=== PATIENT | female | born 1970 | race American Indian/Alaskan Native ===

== ENCOUNTER 2017-02-28 03:39 | Emergency (ER) | payer OTHER ==
[2017-02-28] MEDS ORDERED: NACL 0.9% 1000 ML 1,000 ML IV ONE (03:50)
[2017-02-28 04:20] LABS: Basophils % (Auto) 0.7 % (0.0-1.8); Eosinophils % (Auto) 1.7 % (0.0-4.3); Hematocrit 42.9 % (30.3-42.9); Hemoglobin 14.5 gm/dl (10.1-14.3); Mean Corpuscular HGB Conc 34 % (30-34); Mean Corpuscular Hemoglobin 31 pg (28-32); Mean Corpuscular Volume 92 fl (79-97); Platelet Count 226 K/mm3 (140-440); Red Blood Count 4.67 M/mm3 (3.65-5.03); Red Cell Distribution Width 14.3 % (13.2-15.2)
[2017-02-28 04:31] LABS: INR 0.97 (0.87-1.13)
[2017-02-28 04:41] LABS: Alanine Aminotransferase 18 units/L (7-56); Albumin 4.4 g/dL (3.9-5); Albumin/Globulin Ratio 1.4 %; Alkaline Phosphatase 64 units/L (35-129); Anion Gap 21 mmol/L; BUN/Creatinine Ratio 17.14; Blood Urea Nitrogen 12 mg/dL (7-17); Calcium 8.8 mg/dL (8.4-10.2); Carbon Dioxide 22 mmol/L (22-30); Chloride 98.9 mmol/L (98-107); Glucose 97 mg/dL (65-100); Lipase 50 units/L (13-60); Potassium 3.9 mmol/L (3.6-5.0); Sodium 138 mmol/L (137-145); Total Protein 7.6 g/dL (6.3-8.2)
[2017-02-28] MEDS ORDERED: FUL-GLO OP ONE (12:12)
[2017-02-28] MEDS ORDERED: TETRACAINE 0.5% ONE (12:12)
[2017-02-28] MEDS ORDERED: BSS ONE (12:12)
[2017-02-28] MEDS ORDERED: APRESOLINE IV ONE (12:48)
[2017-02-28] MEDS ORDERED: ZOFRAN IV ONE (12:48)
[2017-02-28] MEDS ORDERED: PEPCID IV ONE (12:48)
[2017-02-28] MEDS ORDERED: BENTYL IM ONE (12:49)
--- NOTE | 2017-02-28 12:50 | Emergency Department Report ---
ED General Adult HPI - General Chief complaint: GI Bleed Stated complaint: BLOOD IN STOOL/R EYE REDNESS/FEVER Time Seen by Provider: 02/28/17 12:28 Source: patient, RN notes reviewed, old records reviewed Mode of arrival: Ambulatory Limitations: No Limitations - History of Present Illness Initial comments: This is a 46-year-old female. She is previously unknown to me. 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 The patient presents to the ER with 2 complaints. Her first complaint is red eye on the right-hand side, with resolved discharge and "gritty" feeling. This has been going on for the past few days. She reports that a daughter is sick with pinkeye. She reports that her boss will not let her go back to work. There is no loss of vision. There is no change in visual acuity. There is mild eye discomfort. There is no cough, documented fever or sore throat, although the patient reports that she "feels warm." She does complain of generalized body aches. The patient's last complaint is diffuse abdominal cramps, brown stool mixed with red blood. This is been going on for a few days as well. No recent travel. No recent oral antibiotic use. She reports that she used her daughter' s eyedrop antibiotic. She reports that this made her eye pain worse. -: Gradual Location: eyes Severity scale (0 -10): 7 Quality: aching Consistency: intermittent Improves with: rest Worsens with: movement Associated Symptoms: malaise, nausea/vomiting. denies: confusion, chest pain, cough, diaphoresis, loss of appetite - Related Data Home Medications Medication Instructions Recorded Confirmed Last Taken Furosemide [Lasix] 20 mg PO QDAY 01/07/16 02/28/17 01/07/16 Previous Rx's Medication Instructions Recorded Last Taken Type ALBUTEROL Inhaler [ProAir HFA 2 puff IH QID PRN #1 inha 04/01/16 Unknown Rx Inhaler] Albuterol Sulfate [Albuterol 0.63% 0.63 mg IH TID PRN #10 vial.neb 04/01/16 Unknown Rx NEBS] Aspirin EC [Aspirin Enteric Coated 81 mg PO QDAY #30 tablet 04/01/16 Unknown Rx TAB] Furosemide [Lasix TAB] 40 mg PO QDAY #30 tablet 04/01/16 Unknown Rx Lisinopril [Zestril TAB] 40 mg PO QDAY #30 tablet 04/01/16 Unknown Rx Metoprolol [Lopressor TAB] 25 mg PO BID #60 tablet 04/01/16 Unknown Rx Nitroglycerin [Nitrostat] 0.4 mg SL Q5M PRN #30 tablet 04/01/16 Unknown Rx Pantoprazole [Protonix TAB] 40 mg PO QDAY #30 tablet.dr 04/01/16 Unknown Rx Spironolactone [Aldactone] 25 mg PO BID #60 tablet 04/01/16 Unknown Rx Ciprofloxacin HCl [Ciprofloxacin 500 mg PO Q12HR #10 tab 02/28/17 Unknown Rx TAB] Dicyclomine [Bentyl] 10 mg PO QID PRN #20 capsule 02/28/17 Unknown Rx Metoclopramide [Reglan] 10 mg PO QID PRN #30 tablet 02/28/17 Unknown Rx Min Oil/Petrolatum [Artificial 3.5 gm OD Q1HR PRN #1 tube 02/28/17 Unknown Rx Tears] metroNIDAZOLE [Flagyl] 500 mg PO Q8HR #15 tablet 02/28/17 Unknown Rx Allergies Allergy/AdvReac Type Severity Reaction Status Date / Time No Known Allergies Allergy Verified 01/07/16 11:32 ED Review of Systems ROS: Stated complaint: BLOOD IN STOOL/R EYE REDNESS/FEVER Other details as noted in HPI Constitutional: malaise. denies: weakness Eyes: eye pain, other (redness) Respiratory: denies: cough Cardiovascular: denies: chest pain Gastrointestinal: abdominal pain, nausea, vomiting Genitourinary: denies: urgency, dysuria Musculoskeletal: arthralgia, myalgia Skin: denies: lesions Neurological: weakness Psychiatric: anxiety ED Past Medical Hx - Past Medical History Previous Medical History?: Yes Hx Hypertension: Yes Hx Congestive Heart Failure: Yes Hx Diabetes: No Hx Asthma: Yes Hx COPD: No - Surgical History Past Surgical History?: Yes Additional Surgical History: hysterectomy, heart cath (2008). EF 27% - Social History Smoking Status: Former Smoker Substance Use Type: None - Medications Home Medications: Home Medications Medication Instructions Recorded Confirmed Last Taken Type Furosemide [Lasix] 20 mg PO QDAY 01/07/16 02/28/17 01/07/16 History ALBUTEROL Inhaler [ProAir HFA 2 puff IH QID PRN #1 inha 04/01/16 02/28/17 Unknown Rx Inhaler] Albuterol Sulfate [Albuterol 0.63% 0.63 mg IH TID PRN #10 vial.neb 04/01/16 Unknown Rx NEBS] Aspirin EC [Aspirin Enteric Coated 81 mg PO QDAY #30 tablet 04/01/16 02/28/17 Unknown Rx TAB] Furosemide [Lasix TAB] 40 mg PO QDAY #30 tablet 04/01/16 02/28/17 Unknown Rx Lisinopril [Zestril TAB] 40 mg PO QDAY #30 tablet 04/01/16 02/28/17 Unknown Rx Metoprolol [Lopressor TAB] 25 mg PO BID #60 tablet 04/01/16 02/28/17 Unknown Rx Nitroglycerin [Nitrostat] 0.4 mg SL Q5M PRN #30 tablet 04/01/16 02/28/17 Unknown Rx Pantoprazole [Protonix TAB] 40 mg PO QDAY #30 tablet. 04/01/16 02/28/17 Unknown Rx Spironolactone [Aldactone] 25 mg PO BID #60 tablet 04/01/16 02/28/17 Unknown Rx Ciprofloxacin HCl [Ciprofloxacin 500 mg PO Q12HR #10 tab 02/28/17 Unknown Rx TAB] Dicyclomine [Bentyl] 10 mg PO QID PRN #20 capsule 02/28/17 Unknown Rx Metoclopramide [Reglan] 10 mg PO QID PRN #30 tablet 02/28/17 Unknown Rx Min Oil/Petrolatum [Artificial 3.5 gm OD Q1HR PRN #1 tube 02/28/17 Unknown Rx Tears] metroNIDAZOLE [Flagyl] 500 mg PO Q8HR #15 tablet 02/28/17 Unknown Rx ED Physical Exam - General Limitations: No Limitations General appearance: alert, in no apparent distress - Head Head exam: Present: atraumatic, normocephalic - Eye Eye exam: Present: PERRL, EOMI, conjunctival injection (no direct or consensual photophobia. Negative Reza sign. Negative fluorescein uptake), other ( visual acuity intact to finger counting, color perception, reading at a close distance) - ENT ENT exam: Present: normal exam, normal orophraynx, mucous membranes moist, normal external ear exam - Neck Neck exam: Present: normal inspection, full ROM. Absent: tenderness, meningismus - Respiratory Respiratory exam: Present: normal lung sounds bilaterally. Absent: respiratory distress, wheezes, rales, rhonchi, stridor, chest wall tenderness, accessory muscle use, decreased breath sounds, prolonged expiratory - Cardiovascular Cardiovascular Exam: Present: regular rate, normal rhythm, normal heart sounds. Absent: bradycardia, tachycardia, irregular rhythm, systolic murmur, diastolic murmur, rubs, gallop - GI/Abdominal GI/Abdominal exam: Present: soft, normal bowel sounds. Absent: distended, tenderness, guarding, rebound, rigid, pulsatile mass - Rectal Rectal exam: Present: normal inspection, normal rectal tone, heme (-) stool, other (during rectal examination, I am escorted by nurse KOBY NGUYEN) - Extremities Exam Extremities exam: Present: normal inspection, full ROM, normal capillary refill. Absent: tenderness, pedal edema, joint swelling, calf tenderness - Back Exam Back exam: Present: normal inspection, full ROM. Absent: tenderness, CVA tenderness (R), CVA tenderness (L), muscle spasm, paraspinal tenderness, vertebral tenderness - Neurological Exam Neurological exam: Present: alert, oriented X3, normal gait, other (Extraocular movements intact. Tongue midline. No facial droop. Facial sensation intact to light touch in the V1, V2, V3 distribution bilaterally. 5 and 5 strength in 4 extremities.. Sensation is intact to light touch in 4 extremities.). Absent : motor sensory deficit - Psychiatric Psychiatric exam: Present: anxious - Skin Skin exam: Present: warm, dry, intact, normal color. Absent: rash ED Course Vital Signs 02/28/17 02/28/17 02/28/17 03:46 08:34 12:30 Temperature 98.5 F 98.2 F Pulse Rate 87 76 Respiratory 22 18 18 Rate Blood Pressure 179/115 194/117 Blood Pressure [Left] O2 Sat by Pulse 99 98 100 Oximetry 02/28/17 12:47 Temperature 98.1 F Pulse Rate 70 Respiratory 18 Rate Blood Pressure Blood Pressure 202/118 [Left] O2 Sat by Pulse 97 Oximetry ED Medical Decision Making - Lab Data Result diagrams: 02/28/17 03:56 02/28/17 03:56 Vital Signs 02/28/17 02/28/17 02/28/17 03:46 08:34 12:30 Temperature 98.5 F 98.2 F Pulse Rate 87 76 Respiratory 22 18 18 Rate Blood Pressure 179/115 194/117 Blood Pressure [Left] O2 Sat by Pulse 99 98 100 Oximetry 02/28/17 12:47 Temperature 98.1 F Pulse Rate 70 Respiratory 18 Rate Blood Pressure Blood Pressure 202/118 [Left] O2 Sat by Pulse 97 Oximetry Lab Results 02/28/17 02/28/17 02/28/17 Range/Units 03:56 03:56 03:56 WBC 5.0 (4.5-11.0) K/mm3 RBC 4.67 (3.65-5.03) M/mm3 Hgb 14.5 H (10.1-14.3) gm/dl Hct 42.9 (30.3-42.9) % MCV 92 (79-97) fl MCH 31 (28-32) pg MCHC 34 (30-34) % RDW 14.3 (13.2-15.2) % Plt Count 226 (140-440) K/mm3 Lymph % (Auto) 40.0 H (13.4-35.0) % Beauregard % (Auto) 13.4 H (0.0-7.3) % Eos % (Auto) 1.7 (0.0-4.3) % Baso % (Auto) 0.7 (0.0-1.8) % Lymph # 2.0 (1.2-5.4) K/mm3 Bea[place]gard # 0.7 (0.0-0.8) K/mm3 Eos # 0.1 (0.0-0.4) K/mm3 Baso # 0.0 (0.0-0.1) K/mm3 Seg Neutrophils % 44.2 (40.0-70.0) % Seg Neutrophils # 2.2 (1.8-7.7) K/mm3 PT 13.4 (12.2-14.9) Sec. INR 0.97 (0.87-1.13) APTT 28.0 (24.2-36.6) Sec. Sodium 138 (137-145) mmol/L Potassium 3.9 (3.6-5.0) mmol/L Chloride 98.9 (98-107) mmol/L Carbon Dioxide 22 (22-30) mmol/L Anion Gap 21 mmol/L BUN 12 (7-17) mg/dL Creatinine 0.7 (0.7-1.2) mg/dL Estimated GFR > 60 ml/min BUN/Creatinine Ratio 17.14 % Glucose 97 (65-100) mg/dL Calcium 8.8 (8.4-10.2) mg/dL Total Bilirubin 0.50 (0.1-1.2) mg/dL AST 23 (5-40) units/L ALT 18 (7-56) units/L Alkaline Phosphatase 64 (35-129) units/L Total Protein 7.6 (6.3-8.2) g/dL Albumin 4.4 (3.9-5) g/dL Albumin/Globulin Ratio 1.4 % Lipase 50 (13-60) units/L Blood Type Antibody Screen GREGORY Antibody Screen 02/28/17 Range/Units 03:56 WBC (4.5-11.0) K/mm3 RBC (3.65-5.03) M/mm3 Hgb (10.1-14.3) gm/dl Hct (30.3-42.9) % MCV (79-97) fl MCH (28-32) pg MCHC (30-34) % RDW (13.2-15.2) % Plt Count (140-440) K/mm3 Lymph % (Auto) (13.4-35.0) % Beauregard % (Auto) (0.0-7.3) % Eos % (Auto) (0.0-4.3) % Baso % (Auto) (0.0-1.8) % Lymph # (1.2-5.4) K/mm3 Bea[place]gard # (0.0-0.8) K/mm3 Eos # (0.0-0.4) K/mm3 Baso # (0.0-0.1) K/mm3 Seg Neutrophils % (40.0-70.0) % Seg Neutrophils # (1.8-7.7) K/mm3 PT (12.2-14.9) Sec. INR (0.87-1.13) APTT (24.2-36.6) Sec. Sodium (137-145) mmol/L Potassium (3.6-5.0) mmol/L Chloride (98-107) mmol/L Carbon Dioxide (22-30) mmol/L Anion Gap mmol/L BUN (7-17) mg/dL Creatinine (0.7-1.2) mg/dL Estimated GFR ml/min BUN/Creatinine Ratio % Glucose (65-100) mg/dL Calcium (8.4-10.2) mg/dL Total Bilirubin (0.1-1.2) mg/dL AST (5-40) units/L ALT (7-56) units/L Alkaline Phosphatase (35-129) units/L Total Protein (6.3-8.2) g/dL Albumin (3.9-5) g/dL Albumin/Globulin Ratio % Lipase (13-60) units/L Blood Type A POSITIVE Antibody Screen TNR GREGORY Antibody Screen Negative - EKG Data -: EKG Interpreted by Ca EKG shows normal: sinus rhythm - EKG Data When compared to previous EKG there are: no significant change 02/28/17 14:00 sinus, 91 beats per minute, QTC 521 ms, normal axis, not morphologically consistent with STEMI, appears unchanged from prior EKG from 2016, high left ventricular voltage is noted. - Radiology Data Radiology results: report reviewed, image reviewed Noncontrast CT scan of the abdomen and pelvis is negative for acute disease and inflammatory process. - Medical Decision Making Differential diagnosis: Conjunctivitis, iritis, scleritis, episcleritis, viral syndrome, enteritis, colitis, diverticulitis, malignancy, asymptomatic hypertension secondary to poor medication compliance Assessment and plan: 46-year-old female with 2 complaints. In terms of the patient's right eye, there is redness with an appropriate visual acuity and close examination, with no evidence of perforated globe, and no cloudy cornea, with appropriate visual acuity. May be a component of scleritis versus episcleritis, the patient is counseled to follow up with an outpatient promotions executive producer. She is counseled to discontinue eyedrops, and she' ll be discharged with artificial tears. found to have hypertension that was asymptomatic, this is a chronic condition, she was given antihypertensive medication which improved her blood pressure. She can follow up with her comprehensive advisor for this. She is counseled that poor compliance with antihypertensive therapy may result in adverse outcome. Patient with abdominal cramping, nausea, vomiting and reported brown stool with red blood. She is hemodynamically stable, with an appropriate hemoglobin and hematocrit, has a benign abdominal examination, negative rectal examination for blood, and normal noncontrast CT scan of the abdomen and pelvis. She'll be started on pain medication, nausea medication, she will be given a short course of antibiotics, she is counseled to follow up with A gastroenterology to exclude cancer/tumor and malignancy. Critical care attestation.: If time is entered above; I have spent that time in minutes in the direct care of this critically ill patient, excluding procedure time. ED Disposition Clinical Impression: Hypertension, Red eye, History of bloody stools Disposition: TO HOME OR SELFCARE Is pt being admited?: No Does the pt Need Aspirin: No Condition: Stable Instructions: Hypertension (ED) Additional Instructions: Take the antibiotics as directed. Do not consume alcohol while taking the antibiotics. Take the pain medication, nausea medication as directed. Follow up with a golf course equipment operator within the next [address] Quezada is a local gastroenterology specialist. Not following up with gastroenterology as recommended may resultant undiagnosed tumor/cancer/malignancy. Follow up with the listed promotions executive producer within the next week. Discontinue use of the child's antibiotic drops in the right eye. Use the artificial tears as often as as needed. Follow up with your comprehensive advisor within the next 2-3 weeks. Blood pressure was noted to be elevated. Long-term complications of hypertension and elevated blood pressure includes stroke, heart attack, disability, , paralysis, permanent loss of quality of life. Return to the ER right away with new pain, worsened pain, migration of pain, fevers, chills, confusion, intractable nausea or vomiting, inability to tolerate liquid feeds. Referrals: PRIMARY CARE, [Primary Care Provider] - 3-5 Days BARRINGTON QUEZADA MD [Staff Physician] - 3-5 Days ANTONIO SAGASTUME MD [Staff Physician] - 3-5 Days RJEI JARRELL MD [Staff Physician] - 3-5 Days Forms: Accompanied Note
--- NOTE | 2017-02-28 13:11 | Cat Scan Report ---
CT OF THE ABDOMEN AND PELVIS WITHOUT CONTRAST HISTORY: Abdominal pain, bloody diarrhea. TECHNIQUE: Helical CT without contrast. Sagittal and coronal reformatted images. FINDINGS: Within the limits of a noncontrast exam, the abdominal and pelvic viscera are within normal limits. The liver, biliary system, pancreas, spleen, kidneys, adrenal glands and bladder are unremarkable. The bowel loops are normal caliber and wall thickness. There are a few scattered diverticula in the colon but no evidence for focal inflammation or obstruction. Normal appendix. The aorta is normal caliber. No ascites, bulky adenopathy or inflammatory changes. Hysterectomy changes are evident. The lung bases are clear. Normal heart size. No suspicious bony lesion. IMPRESSION: No acute abdominal process is appreciated.
[2017-02-28] MEDS ORDERED: CARAFATE PO ONE (14:00)
[2017-02-28 14:01] VITALS: BP 177/96
[2017-02-28] MEDS ORDERED: ARTIFICIAL TEARS OPHTH OINT OD STA (14:14)
== END 2017-02-28 14:30 | disposition home or self-care (01) ==
LOC: ED 03:39
DX: I10 Essential (primary) hypertension (principal); M79.1 Myalgia; I50.9 Heart failure, unspecified; J45.909 Unspecified asthma, uncomplicated; Z79.82 Long term (current) use of aspirin; Z87.891 Personal history of nicotine dependence
CPT/HCPCS: 36415; 74176; 80053; 82271; 83690; 85025; 85610; 85730; 86850; 86900; 86901; 93005; 93010; 96372; 96374; 96375; 99285; J0360; J0500; J2405

== ENCOUNTER 2017-05-20 13:07 | Emergency (ER) | payer SELFPAY ==
[2017-05-20 13:46] LABS: Basophils % (Auto) 0.5 % (0.0-1.8); Eosinophils % (Auto) 0.9 % (0.0-4.3); Hematocrit 41.6 % (30.3-42.9); Hemoglobin 13.7 gm/dl (10.1-14.3); Mean Corpuscular HGB Conc 33 % (30-34); Mean Corpuscular Hemoglobin 31 pg (28-32); Mean Corpuscular Volume 93 fl (79-97); Platelet Count 246 K/mm3 (140-440); Red Blood Count 4.48 M/mm3 (3.65-5.03); Red Cell Distribution Width 14.8 % (13.2-15.2); White Blood Count 5.4 K/mm3 (4.5-11.0)
[2017-05-20 14:05] LABS: Anion Gap 18 mmol/L; BUN/Creatinine Ratio 21.25; Blood Urea Nitrogen 17 mg/dL (7-17); Calcium 9.1 mg/dL (8.4-10.2); Carbon Dioxide 26 mmol/L (22-30); Chloride 101.4 mmol/L (98-107); Glucose 123 mg/dL (65-100); Potassium 3.8 mmol/L (3.6-5.0); Sodium 142 mmol/L (137-145)
[2017-05-20] MEDS ORDERED: LASIX IV ONE ×2 (16:59→19:46)
[2017-05-20] MEDS ORDERED: TYLENOL #3 PO ONE (16:59)
[2017-05-20] MEDS ORDERED: BABY ASPIRIN PO ONE (17:01)
--- NOTE | 2017-05-20 17:01 | Emergency Department Report ---
ED Shortness of Breath HPI - General Chief Complaint: Chest Pain Stated Complaint: CHEST PAIN, LEGS SWELLING Time Seen by Provider: 05/20/17 16:51 Source: patient, RN notes reviewed, old records reviewed Mode of arrival: Ambulatory Limitations: No Limitations - History of Present Illness Initial Comments: This is a 46-year-old female. I have evaluated her in the past. Past medical history includes hypertension, hysterectomy, cardiac catheterization in 2016, which demonstrated dilated left ventricle with severe diffuse hypokinesis, ejection fraction of 15%, with normal coronary anatomy. Patient reports that secondary to insurance and physical issues, she has not been able to remain compliant with her medications, including her Lasix therapy and antihypertensive therapy. She presents to the ER with unintentional weight gain , lower extremity swelling, abdominal distention, shortness of breath, and chest tightness. The chest tightness has been present for 2 days, does not radiate to the back, arms or neck. No recent trips greater than 4 hours, no recent hospital admissions, no recent surgeries, patient does not take systemic estrogen or oral contraceptives. The chest pain increases with palpation. It decreases with rest. Patient endorses new onset pillow orthopnea. MD Complaint: shortness of breath, chest pain -: Gradual Consistency: intermittent Improves With: rest Worsens With: lying flat, medication Known History Of: congestive heart failure Context: medication noncompliance Associated Symptoms: chest pain, orhopnia, lower extremity pain, lower abdominal swelling Treatments Prior to Arrival: none - Related Data Home Oxygen Therapy: No Previous Rx's Medication Instructions Recorded Last Taken Type ALBUTEROL Inhaler [ProAir HFA 2 puff IH QID PRN #1 inha 04/01/16 Unknown Rx Inhaler] Albuterol Sulfate [Albuterol 0.63% 0.63 mg IH TID PRN #10 vial.neb 04/01/16 Unknown Rx NEBS] Furosemide [Lasix TAB] 40 mg PO QDAY #30 tablet 04/01/16 05/13/17 Rx Nitroglycerin [Nitrostat] 0.4 mg SL Q5M PRN #30 tablet 04/01/16 Unknown Rx Ciprofloxacin HCl [Ciprofloxacin 500 mg PO Q12HR #10 tab 02/28/17 05/20/17 Rx TAB] Lisinopril [Zestril TAB] 40 mg PO QDAY #30 tablet 02/28/17 05/13/17 Rx Spironolactone [Aldactone] 25 mg PO BID #60 tablet 02/28/17 05/20/17 Rx metroNIDAZOLE [Flagyl] 500 mg PO Q8HR #15 tablet 02/28/17 05/20/17 Rx Aspirin [Aspirin BABY CHEW TAB] 81 mg PO QDAY #30 tab.chew 05/20/17 Unknown Rx Furosemide [Lasix TAB] 40 mg PO QDAY #30 tablet 05/20/17 Unknown Rx Lisinopril [Zestril TAB] 40 mg PO QDAY #30 tablet 05/20/17 Unknown Rx Metoprolol [Lopressor TAB] 25 mg PO BID #60 tablet 05/20/17 Unknown Rx Nitroglycerin [Nitrostat] 0.4 mg SL Q5M PRN #20 tab 05/20/17 Unknown Rx Pantoprazole [Protonix] 40 mg PO QDAY #30 tablet 05/20/17 Unknown Rx Spironolactone [Aldactone] 50 mg PO QDAY #30 tablet 05/20/17 Unknown Rx Allergies Allergy/AdvReac Type Severity Reaction Status Date / Time No Known Allergies Allergy Verified 01/07/16 11:32 ED Review of Systems ROS: Stated complaint: CHEST PAIN, LEGS SWELLING Other details as noted in HPI Constitutional: malaise, weakness Eyes: denies: eye discharge ENT: denies: epistaxis Respiratory: shortness of breath Cardiovascular: chest pain Gastrointestinal: abdominal pain Genitourinary: denies: dysuria Musculoskeletal: arthralgia, myalgia Skin: denies: lesions Neurological: denies: weakness Psychiatric: anxiety ED Past Medical Hx - Past Medical History Previous Medical History?: Yes Hx Hypertension: Yes Hx Congestive Heart Failure: Yes Hx Diabetes: No Hx Asthma: Yes Hx COPD: No - Surgical History Additional Surgical History: hysterectomy, heart cath (2008). EF 27% - Social History Smoking Status: Never Smoker Substance Use Type: None - Medications Home Medications: Home Medications Medication Instructions Recorded Confirmed Last Taken Type ALBUTEROL Inhaler [ProAir HFA 2 puff IH QID PRN #1 inha 04/01/16 05/20/17 Unknown Rx Inhaler] Albuterol Sulfate [Albuterol 0.63% 0.63 mg IH TID PRN #10 vial.neb 04/01/16 Unknown Rx NEBS] Furosemide [Lasix TAB] 40 mg PO QDAY #30 tablet 04/01/16 05/20/17 05/13/17 Rx Nitroglycerin [Nitrostat] 0.4 mg SL Q5M PRN #30 tablet 04/01/16 05/20/17 Unknown Rx Ciprofloxacin HCl [Ciprofloxacin 500 mg PO Q12HR #10 tab 02/28/17 05/20/1705/20 Rx TAB] Lisinopril [Zestril TAB] 40 mg PO QDAY #30 tablet 02/28/17 05/20/17 05/13/17 Rx Spironolactone [Aldactone] 25 mg PO BID #60 tablet 02/28/17 05/20/17 05/20/17 Rx metroNIDAZOLE [Flagyl] 500 mg PO Q8HR #15 tablet 02/28/17 05/20/17 05/20/17 Rx Aspirin [Aspirin BABY CHEW TAB] 81 mg PO QDAY #30 tab.chew 05/20/17 Unknown Rx Furosemide [Lasix TAB] 40 mg PO QDAY #30 tablet 05/20/17 Unknown Rx Lisinopril [Zestril TAB] 40 mg PO QDAY #30 tablet 05/20/17 Unknown Rx Metoprolol [Lopressor TAB] 25 mg PO BID #60 tablet 05/20/17 Unknown Rx Nitroglycerin [Nitrostat] 0.4 mg SL Q5M PRN #20 tab 05/20/17 Unknown Rx Pantoprazole [Protonix] 40 mg PO QDAY #30 tablet 05/20/17 Unknown Rx Spironolactone [Aldactone] 50 mg PO QDAY #30 tablet 05/20/17 Unknown Rx ED Physical Exam - General Limitations: No Limitations General appearance: alert, in no apparent distress - Head Head exam: Present: atraumatic, normocephalic - Eye Eye exam: Present: normal appearance, EOMI - ENT ENT exam: Present: normal exam, normal orophraynx, mucous membranes moist - Neck Neck exam: Present: normal inspection, full ROM - Respiratory Respiratory exam: Present: chest wall tenderness, decreased breath sounds. Absent: respiratory distress, wheezes, rales, rhonchi, stridor - Cardiovascular Cardiovascular Exam: Present: regular rate, normal rhythm, normal heart sounds. Absent: bradycardia, tachycardia, irregular rhythm, systolic murmur, diastolic murmur, rubs, gallop - GI/Abdominal GI/Abdominal exam: Present: soft, normal bowel sounds. Absent: distended, tenderness, guarding, rebound, rigid, pulsatile mass - Extremities Exam Extremities exam: Present: normal inspection, full ROM, normal capillary refill , calf tenderness - Back Exam Back exam: Present: normal inspection, full ROM. Absent: tenderness, CVA tenderness (R), CVA tenderness (L), muscle spasm, paraspinal tenderness, vertebral tenderness - Neurological Exam Neurological exam: Present: alert, oriented X3, normal gait, other (Extraocular movements intact. Tongue midline. No facial droop. Facial sensation intact to light touch in the V1, V2, V3 distribution bilaterally. 5 and 5 strength in 4 extremities.. Sensation is intact to light touch in 4 extremities.). Absent : motor sensory deficit - Psychiatric Psychiatric exam: Present: normal affect, normal mood - Skin Skin exam: Present: warm, dry, intact, normal color. Absent: rash ED Course Vital Signs 05/20/17 05/20/17 05/20/17 13:17 16:27 17:43 Temperature 98.3 F 98.7 F Pulse Rate 94 H 76 86 Respiratory 20 20 18 Rate Blood Pressure 186/108 168/92 Blood Pressure 169/89 [Right] O2 Sat by Pulse 99 98 Oximetry 05/20/17 05/20/17 19:25 19:30 Temperature 98.3 F Pulse Rate 68 Respiratory 17 12 Rate Blood Pressure Blood Pressure [Right] O2 Sat by Pulse 98 98 Oximetry ED Medical Decision Making - Lab Data Result diagrams: 05/20/17 13:27 05/20/17 13:27 Vital Signs 05/20/17 05/20/17 05/20/17 13:17 16:27 17:43 Temperature 98.3 F 98.7 F Pulse Rate 94 H 76 86 Respiratory 20 20 18 Rate Blood Pressure 186/108 168/92 Blood Pressure 169/89 [Right] O2 Sat by Pulse 99 98 Oximetry Lab Results 05/20/17 05/20/17 Range/Units 13:27 13:27 WBC 5.4 (4.5-11.0) K/mm3 RBC 4.48 (3.65-5.03) M/mm3 Hgb 13.7 (10.1-14.3) gm/dl Hct 41.6 (30.3-42.9) % MCV 93 (79-97) fl MCH 31 (28-32) pg MCHC 33 (30-34) % RDW 14.8 (13.2-15.2) % Plt Count 246 (140-440) K/mm3 Lymph % (Auto) 33.5 (13.4-35.0) % [place] % (Auto) 9.6 H (0.0-7.3) % Eos % (Auto) 0.9 (0.0-4.3) % Baso % (Auto) 0.5 (0.0-1.8) % Lymph # 1.8 (1.2-5.4) K/mm3 [place] # 0.5 (0.0-0.8) K/mm3 Eos # 0.0 (0.0-0.4) K/mm3 Baso # 0.0 (0.0-0.1) K/mm3 Seg Neutrophils % 55.5 (40.0-70.0) % Seg Neutrophils # 3.0 (1.8-7.7) K/mm3 Sodium 142 (137-145) mmol/L Potassium 3.8 (3.6-5.0) mmol/L Chloride 101.4 (98-107) mmol/L Carbon Dioxide 26 (22-30) mmol/L Anion Gap 18 mmol/L BUN 17 (7-17) mg/dL Creatinine 0.8 (0.7-1.2) mg/dL Estimated GFR > 60 ml/min BUN/Creatinine Ratio 21.25 % Glucose 123 H (65-100) mg/dL Calcium 9.1 (8.4-10.2) mg/dL Troponin T < 0.010 (0.00-0.029) ng/mL NT-Pro-B Natriuret Pep 1267 H (0-450) pg/mL - EKG Data -: EKG Interpreted by Me - EKG Data 05/20/17 17:54 EKG demonstrates normal sinus, high left ventricular voltage, atrial enlargement , nonspecific T-wave abnormality, QTC prolonged at 5.5 ms, abnormal EKG, not morphologically consistent with STEMI, appears unchanged when compared to prior EKG from February 2017. - Radiology Data Radiology results: image reviewed interpreted by me: X-ray of the chest is negative for acute disease - Medical Decision Making Differential diagnosis: Costochondritis, pneumonia, congestive heart failure, abdominal wall anasarca Assessment and plan: 46-year-old female with reproducible chest wall pain, negative cardiac catheterization in 2016, no pulmonary embolus or DVT risk factors, low risk by well's criteria, perc negative, with a presenting complaint of chest wall pain, abdominal distention, lower extremity swelling, and shortness of breath. She endorses poor compliance secondary to financial issues. Most likely congestive heart failure with costochondritis. She will be treated with Tylenol 3 for her chest wall pain, Lasix, and aspirin. Case is presented to the Hospital physician, Dr. Sebastian, he graciously accept the patient to his service. Critical care attestation.: If time is entered above; I have spent that time in minutes in the direct care of this critically ill patient, excluding procedure time. ED Disposition Clinical Impression: CHF exacerbation, Chest pain Disposition: OP ADMIT IP TO THIS HOSP Is pt being admited?: Yes Does the pt Need Aspirin: Yes Condition: Stable Instructions: Chest Pain (ED) Prescriptions: Aspirin [Aspirin BABY CHEW TAB] 81 mg PO QDAY #30 tab.chew Furosemide [Lasix TAB] 40 mg PO QDAY #30 tablet Lisinopril [Zestril TAB] 40 mg PO QDAY #30 tablet Metoprolol [Lopressor TAB] 25 mg PO BID #60 tablet Nitroglycerin [Nitrostat] 0.4 mg SL Q5M PRN #20 tab PRN Reason: Chest Pain Pantoprazole [Protonix] 40 mg PO QDAY #30 tablet Spironolactone [Aldactone] 50 mg PO QDAY #30 tablet Referrals: PRIMARY CARE,MD [Primary Care Provider] - 3-5 Days Forms: Work/School Release Form(ED)
[2017-05-20] MEDS ORDERED: ZESTRIL PO ONE (17:02)
[2017-05-20 17:44] VITALS: BP 168/92
[2017-05-20 18:19] LABS: INR 0.99 (0.87-1.13)
--- NOTE | 2017-05-21 07:44 | XRay Report ---
ROUTINE CHEST, TWO VIEWS: HISTORY: chest pain. Heart size pulmonary venous structures are at the upper limits of normal. The lungs are clear. No evidence for pneumonia, CHF or pneumothorax. The osseous structures are within normal limits. IMPRESSION: Borderline heart size and pulmonary vascularity. There is perhaps minimal improvement in these findings since 03/29/16. No acute process is noted.
== END 2017-05-20 20:36 | disposition admitted as inpatient to this hospital (09) ==
LOC: ED 13:07
DX: I50.9 Heart failure, unspecified (principal); R07.9 Chest pain, unspecified; I10 Essential (primary) hypertension; J45.909 Unspecified asthma, uncomplicated; Z79.82 Long term (current) use of aspirin; Z95.1 Presence of aortocoronary bypass graft
CPT/HCPCS: 36415; 71020; 80048; 83880; 84484; 85025; 85610; 85730; 93005; 93010; 96374; 99284; J1940

== ENCOUNTER 2017-08-27 07:27 | Inpatient (IN) | payer SELFPAY ==
[2017-08-27 08:15] LABS: Basophils % (Auto) 0.5 % (0.0-1.8); Eosinophils % (Auto) 1.4 % (0.0-4.3); Hematocrit 41.9 % (30.3-42.9); Hemoglobin 13.6 gm/dl (10.1-14.3); Mean Corpuscular HGB Conc 32 % (30-34); Mean Corpuscular Hemoglobin 31 pg (28-32); Mean Corpuscular Volume 95 fl (79-97); Platelet Count 211 K/mm3 (140-440); Red Blood Count 4.43 M/mm3 (3.65-5.03); Red Cell Distribution Width 15.1 % (13.2-15.2); White Blood Count 5.6 K/mm3 (4.5-11.0)
[2017-08-27 08:34] LABS: Anion Gap 15 mmol/L; BUN/Creatinine Ratio 19; Blood Urea Nitrogen 13 mg/dL (7-17); Carbon Dioxide 24 mmol/L (22-30); Chloride 107.6 mmol/L (98-107); Glucose 102 mg/dL (65-100); Potassium 4.5 mmol/L (3.6-5.0); Sodium 142 mmol/L (137-145)
--- NOTE | 2017-08-27 09:09 | XRay Report ---
ROUTINE CHEST, TWO VIEWS: HISTORY: Shortness of breath. Mild cardiomegaly and pulmonary venous congestion are identified which appear to be slightly increased since 05/20-. The lungs are clear. No evidence for pneumonia, CHF or pneumothorax. IMPRESSION: Mild cardiomegaly and pulmonary venous congestion.
[2017-08-27] MEDS ORDERED: DUONEB *Not for PRN Use IH ONE (10:30)
[2017-08-27] MEDS ORDERED: SUBLIMAZE IV ONE (10:42)
[2017-08-27] MEDS ORDERED: ZOFRAN IV ONE (10:42)
--- NOTE | 2017-08-27 10:50 | Emergency Department Report ---
HPI - General Chief Complaint: Dyspnea/Respdistress Time Seen by Provider: 08/27/17 10:35 - HPI HPI: Room 22 The patient is a 47-year-old female presented with a chief complaint of chest pain and shortness of breath. The patient states she ran out of her Lasix approximately 3 days ago. The patient states for the past 2 days she's had insomnia secondary to increased abdominal swelling and bilateral lower extremity edema. Patient states she has had shortness of breath addition to substernal chest pain and right upper extremity numbness. Patient does admit to nausea and vomiting times one yesterday and his diaphoresis. The patient's last cardiac catheterization occurred 2015 which revealed an EF of 15% Location: [See above] Duration: 2 days Quality: Pain, shortness of breath Severity: Greater than 10/10 Modifying factors: [see above] Context: [see above] Mode of transportation: [not driving] ED Past Medical Hx - Past Medical History Hx Hypertension: Yes Hx Congestive Heart Failure: Yes Hx Asthma: Yes - Surgical History Additional Surgical History: hysterectomy, heart cath (2015). EF 15% - Family History Family history: no significant - Social History Smoking Status: Never Smoker Substance Use Type: None - Medications Home Medications: Home Medications Medication Instructions Recorded Confirmed Last Taken Type ALBUTEROL Inhaler [ProAir HFA 2 puff IH QID PRN #1 inha 04/01/16 08/27/17 Unknown Rx Inhaler] Albuterol Sulfate [Albuterol 0.63% 0.63 mg IH TID PRN #10 vial.neb 04/01/16 Unknown Rx NEBS] Furosemide [Lasix TAB] 40 mg PO QDAY #30 tablet 04/01/16 08/27/17 05/13/17 Rx Spironolactone [Aldactone] 25 mg PO BID #60 tablet 02/28/17 05/20/17 05/20/17 Rx Aspirin [Aspirin BABY CHEW TAB] 81 mg PO QDAY #30 tab.chew 05/20/17 08/27/17 Unknown Rx Lisinopril [Zestril TAB] 40 mg PO QDAY #30 tablet 05/20/17 08/27/17 Unknown Rx Metoprolol [Lopressor TAB] 25 mg PO BID #60 tablet 05/20/17 08/27/17 Unknown Rx Nitroglycerin [Nitrostat] 0.4 mg SL Q5M PRN #20 tab 05/20/17 08/27/17 Unknown Rx Pantoprazole [Protonix] 40 mg PO QDAY #30 tablet 05/20/17 08/27/17 Unknown Rx Spironolactone [Aldactone] 50 mg PO QDAY #30 tablet 05/20/17 08/27/17 Unknown Rx ED Review of Systems ROS: Stated complaint: SHORTNESS OF BREATH Other details as noted in HPI Constitutional: diaphoresis Respiratory: shortness of breath Cardiovascular: chest pain Gastrointestinal: other (abdominal swelling) Hematological/Lymphatic: other (leg swelling) Physical Exam - Physical Exam Vital Signs: Vital Signs 08/27/17 08/27/17 07:48 09:30 Temperature 98.3 F Pulse Rate 82 Respiratory 16 18 Rate Blood Pressure 179/118 O2 Sat by Pulse 97 98 Oximetry Physical Exam: GENERAL: The patient is well-developed well-nourished female sitting on stretcher not appearing to be in acute distress. [] HEENT: Normocephalic. Atraumatic. Extraocular motions are intact. Patient has moist mucous membranes. NECK: Supple. Trachea midline CHEST/LUNGS: Clear to auscultation. There is no respiratory distress noted. HEART/CARDIOVASCULAR: Regular. There is no tachycardia. There is no gallop rub or murmur. ABDOMEN: Abdomen is soft, nontender. Patient has normal bowel sounds. There is no abdominal distention. SKIN: There is no rash. There is no edema. There is no diaphoresis. NEURO: The patient is awake, alert, and oriented. The patient is cooperative. The patient has normal speech MUSCULOSKELETAL: There is no evidence of acute injury. ED Course Vital Signs 08/27/17 08/27/17 07:48 09:30 Temperature 98.3 F Pulse Rate 82 Respiratory 16 18 Rate Blood Pressure 179/118 O2 Sat by Pulse 97 98 Oximetry ED Medical Decision Making - Lab Data Result diagrams: 08/27/17 08:00 08/27/17 08:00 Laboratory Tests 08/27/17 08/27/17 08:00 08:00 WBC 5.6 RBC 4.43 Hgb 13.6 Hct 41.9 MCV 95 MCH 31 MCHC 32 RDW 15.1 Plt Count 211 Lymph % (Auto) 30.3 [place] % (Auto) 7.1 Eos % (Auto) 1.4 Baso % (Auto) 0.5 Lymph # 1.7 [place] # 0.4 Eos # 0.1 Baso # 0.0 Seg Neutrophils % 60.7 Seg Neutrophils # 3.4 Sodium 142 Potassium 4.5 Chloride 107.6 H Carbon Dioxide 24 Anion Gap 15 BUN 13 Creatinine 0.7 Estimated GFR > 60 BUN/Creatinine Ratio 19 Glucose 102 H Calcium 9.0 Troponin T < 0.010 - EKG Data -: EKG Interpreted by Me EKG shows normal: sinus rhythm Rate: normal - EKG Data When compared to previous EKG there are: previous EKG unavailable Interpretation: nonspecific ST-T wave eusebio (T-wave inversions in leads 1 and aVL) - Radiology Data Radiology results: report reviewed (chest x-ray), image reviewed (chest x-ray) interpreted by me: Chest x-ray-no focal infiltrates, no pneumothorax. Mild venous congestion ROUTINE CHEST, TWO VIEWS: HISTORY: Shortness of breath. Mild cardiomegaly and pulmonary venous congestion are identified which appear to be slightly increased since . The lungs are clear. No evidence for pneumonia, CHF or pneumothorax. IMPRESSION: Mild cardiomegaly and pulmonary venous congestion. Transcribed By: TTR Dictated By: DEACON GALDAMEZ JR, MD Electronically Authenticated By: DEACON GALDAMEZ JR, MD Signed Date/Time: 08/27/17903 DD/ 2 TD/TT: 08/27/17903 - Differential Diagnosis CHF exacerbation, ACS, GERD, nonischemic cardiomyopathy Critical care attestation.: If time is entered above; I have spent that time in minutes in the direct care of this critically ill patient, excluding procedure time. ED Disposition Clinical Impression: CHF exacerbation, Chest pain Disposition: OP ADMIT IP TO THIS HOSP Is pt being admited?: Yes Does the pt Need Aspirin: Yes Condition: Fair Instructions: Chest Pain (ED) Referrals: PRIMARY CARE, [Primary Care Provider] - 3-5 Days Time of Disposition: 11:06 (hospitalist paged (Dr. Sebastian))
[2017-08-27] MEDS ORDERED: ASPIRIN PO ONE (10:56)
[2017-08-27] MEDS ORDERED: LASIX 100 MG in NACL 0.9% 50 ML IV ONE (11:42)
--- NOTE | 2017-08-27 13:13 | History and Physical Report ---
History of Present Illness Date of admission: 08/27/17 11:51 Chief complaint: I cant breathe History of present illness: 47 YO Female with HTN, Asthma, Systolic CHF(EF 15%), presents to ED for evaluation. Pt states that she has experienced shortness of breath for the past 3 days with worsening symptoms over the same time period. The patient states she ran out of her Lasix approximately 3 days ago. The patient acknowledges Orthopnea/PND and bilateral lower extremity edema. Pt denies fever, chills, CP , Palpitations, NVD, Syncope, Productive cough, recent ill contacts. Pt seen and evaluated in ED and found to have CHF Decompensation and symptoms not responsive to initial supportive therapy. Pt admitted to telemetry. Past History Past Medical History: heart failure, hypertension, other (asthma) Past Surgical History: hysterectomy, Other (Heart cath) Social history: , smoking. denies: alcohol abuse, prescription drug abuse Family history: CAD, hypertension Medications and Allergies Allergies Allergy/AdvReac Type Severity Reaction Status Date / Time No Known Allergies Allergy Verified 01/07/16 11:32 Home Medications Medication Instructions Recorded Confirmed Last Taken Type ALBUTEROL Inhaler [ProAir HFA 2 puff IH QID PRN #1 inha 04/01/16 08/27/17 Unknown Rx Inhaler] Albuterol Sulfate [Albuterol 0.63% 0.63 mg IH TID PRN #10 vial.neb 04/01/16 Unknown Rx NEBS] Furosemide [Lasix TAB] 40 mg PO QDAY #30 tablet 04/01/16 08/27/17 05/13/17 Rx Aspirin [Aspirin BABY CHEW TAB] 81 mg PO QDAY #30 tab.chew 05/20/17 08/27/17 Rx Lisinopril [Zestril TAB] 40 mg PO QDAY #30 tablet 05/20/17 08/27/17 Unknown Rx Metoprolol [Lopressor TAB] 25 mg PO BID #60 tablet 05/20/17 08/27/17 Unknown Rx Nitroglycerin [Nitrostat] 0.4 mg SL Q5M PRN #20 tab 05/20/17 08/27/17 Unknown Rx Pantoprazole [Protonix] 40 mg PO QDAY #30 tablet 05/20/17 08/27/17 08/26/17 Rx Spironolactone [Aldactone] 50 mg PO QDAY #30 tablet 05/20/17 08/27/17 08/26/17 Rx Review of Systems Constitutional: no weight loss, no weight gain, no fever, no chills Ears, nose, mouth and throat: no ear pain, no ear discharge, no tinnitis, no decreased hearing, no nose pain Cardiovascular: orthopnea, edema, shortness of breath, paroxysmal nocturnal dyspnea, no chest pain Respiratory: no cough, no cough with sputum, no excessive sputum, no hemoptysis Gastrointestinal: no nausea, no vomiting, no diarrhea, no constipation Genitourinary Female: no pelvic pain, no flank pain, no menorrhagia, no dysuria Rectal: no pain, no incontinence, no bleeding Musculoskeletal: no neck stiffness, no neck pain, no shooting arm pain, no arm numbness/tingling, no low back pain Integumentary: no rash, no pruritis, no redness, no sores Neurological: no paralysis, no weakness, no parathesias, no numbness, no tingling Psychiatric: no memory loss, no change in sleep habits, no sleep disturbances, no insomnia Endocrine: no cold intolerance, no heat intolerance, no polyphagia, no excessive thirst, no polydipsia Hematologic/Lymphatic: no easy bruising, no easy bleeding Allergic/Immunologic: no urticaria, no allergic rhinitis, no wheezing Exam - Constitutional Vitals: Temp Pulse Resp BP Pulse Ox 98.3 F 82 18 179/118 98 08/27/17 07:48 08/27/17 07:48 08/27/17 11:11 08/27/17 07:48 08/27/17 09:30 General appearance: Present: mild distress - EENT Eyes: Present: PERRL ENT: hearing intact, clear oral mucosa - Neck Neck: Present: supple, normal ROM - Respiratory Respiratory effort: labored Respiratory: bilateral: diminished - Cardiovascular Heart Sounds: Present: S1 & S2. Absent: rub, click - Extremities Extremities: pulses symmetrical, No edema Peripheral Pulses: within normal limits - Abdominal General gastrointestinal: Present: soft, non-tender, non-distended, normal bowel sounds Female genitourinary: Present: normal - Integumentary Integumentary: Present: clear, warm, dry - Musculoskeletal Musculoskeletal: gait normal, strength equal bilaterally - Psychiatric Psychiatric: appropriate mood/affect, intact judgment & insight - Neurologic Neurologic: CNII-XII intact, moves all extremities Results - Labs CBC & Chem 7: 08/27/17 08:00 08/27/17 08:00 Labs: Abnormal lab results 08/27/17 Range/Units 08:00 Chloride 107.6 H (98-107) mmol/L Glucose 102 H (65-100) mg/dL Assessment and Plan - Patient Problems (1) CHF exacerbation Current Visit: Yes Status: Acute Qualifiers: Congestive heart failure type: systolic Qualified Code(s): I50.23 - Acute on chronic systolic (congestive) heart failure Plan to address problem: Afterload reduction, diuresis, monitor uop q shift, ensure negative fluid balance, admit to telemetry, resume medical management, supplemental oxygen, (2) Acute respiratory failure Current Visit: Yes Status: Acute Plan to address problem: Supplemental oxygen,nebs, aspiration precautions, incentive spirometry, diuresis (3) Noncompliance with medication regimen Current Visit: No Status: Acute Plan to address problem: Pt counseled regarding medication noncompliance. (4) HTN (hypertension) Current Visit: Yes Status: Acute Qualifiers: Hypertension type: essential hypertension Qualified Code(s): I10 - Essential (primary) hypertension Plan to address problem: monitor uop q shift, diuresis, continue medical management. (5) DVT prophylaxis Current Visit: No Status: Acute
[2017-08-27] MEDS ORDERED: Fluarix Quad 2017-2018(36 MOS+ IM ONE (15:00)
[2017-08-27] MEDS ORDERED: PROAIR IH PRN (15:29)
[2017-08-27] MEDS: ALDACTONE PO SCH (16:42)
[2017-08-27] MEDS: LOPRESSOR PO SCH ×2 (16:43→21:45)
[2017-08-27] MEDS: BABY ASPIRIN PO SCH (16:43)
[2017-08-27] MEDS: PROTONIX PO SCH (16:45)
[2017-08-27] MEDS: ZESTRIL PO SCH (16:45)
[2017-08-27 19:41] LABS: Creatine Kinase MB 2.5 ng/mL (0.0-4.0)
[2017-08-27] MEDS: PROVENTIL IH PRN (19:49)
[2017-08-27 21:14] LABS: Creatine Kinase MB 2.3 ng/mL (0.0-4.0)
[2017-08-27 21:15] LABS: Creatine Kinase 92 units/L (30-135)
[2017-08-27] MEDS: MORPHINE IV PRN (21:44)
[2017-08-28] MEDS: MORPHINE IV PRN ×3 (06:34→21:51)
[2017-08-28] MEDS: PROVENTIL IH PRN (09:03)
[2017-08-28] MEDS ORDERED: PROVENTIL IH PRN (09:11)
[2017-08-28] MEDS: ALDACTONE PO SCH (11:30)
[2017-08-28] MEDS: LOPRESSOR PO SCH ×2 (11:30→21:51)
[2017-08-28] MEDS: LASIX PO SCH (11:30)
[2017-08-28] MEDS: ZESTRIL PO SCH (11:30)
[2017-08-28] MEDS: BABY ASPIRIN PO SCH (11:30)
[2017-08-28] MEDS: PROTONIX PO SCH (11:30)
[2017-08-28] MEDS ORDERED: Fluarix Quad 2017-2018(36 MOS+ IM ONE (12:00)
[2017-08-28] MEDS ORDERED: PNEUMOVAX 23 IM ONE (12:00)
[2017-08-28] MEDS: DUONEB *Not for PRN Use IH SCH ×2 (14:30→21:44)
[2017-08-29] MEDS: MORPHINE IV PRN ×3 (05:03→18:59)
[2017-08-29] MEDS: DUONEB *Not for PRN Use IH SCH ×3 (08:03→20:14)
[2017-08-29] MEDS: LASIX PO SCH (10:54)
[2017-08-29] MEDS: LOPRESSOR PO SCH ×2 (10:54→22:36)
[2017-08-29] MEDS: PROTONIX PO SCH (10:54)
[2017-08-29] MEDS: ALDACTONE PO SCH (10:54)
[2017-08-29] MEDS: BABY ASPIRIN PO SCH (10:54)
[2017-08-29] MEDS: ZESTRIL PO SCH (10:55)
[2017-08-29] MEDS ORDERED: PNEUMOVAX 23 IM ONE (15:00)
[2017-08-29] MEDS ORDERED: Fluarix Quad 2017-2018(36 MOS+ IM ONE (15:00)
--- NOTE | 2017-08-29 16:03 | Progress Note ---
Assessment and Plan Assessment and Plan - Patient Problems (1) CHF exacerbation Current Visit: Yes Status: Acute Qualifiers: Congestive heart failure type: systolic Qualified Code(s): I50.23 - Acute on chronic systolic (congestive) heart failure Plan to address problem: Afterload reduction, diuresis, monitor uop q shift, ensure negative fluid balance, admit to telemetry, resume medical management, supplemental oxygen, Cont supportive care (2) Acute respiratory failure Current Visit: Yes Status: Acute Plan to address problem: Supplemental oxygen,nebs, aspiration precautions, incentive spirometry, diuresis (3) Noncompliance with medication regimen Current Visit: No Status: Acute Plan to address problem: Pt counseled regarding medication noncompliance. (4) HTN (hypertension) Current Visit: Yes Status: Acute Qualifiers: Hypertension type: essential hypertension Qualified Code(s): I10 - Essential (primary) hypertension Plan to address problem: monitor uop q shift, diuresis, continue medical management. (5) DVT prophylaxis Current Visit: No Status: Acute Subjective Date of service: 08/29/17 Principal diagnosis: CHF exacerbation Interval history: Late entry Symptomatically better Assessment and Plan - Patient Problems (1) CHF exacerbation Current Visit: Yes Status: Acute Qualifiers: Congestive heart failure type: systolic Qualified Code(s): I50.23 - Acute on chronic systolic (congestive) heart failure Plan to address problem: Afterload reduction, diuresis, monitor uop q shift, ensure negative fluid balance, admit to telemetry, resume medical management, supplemental oxygen, (2) Acute respiratory failure Current Visit: Yes Status: Acute Plan to address problem: Supplemental oxygen,nebs, aspiration precautions, incentive spirometry, diuresis (3) Noncompliance with medication regimen Current Visit: No Status: Acute Plan to address problem: Pt counseled regarding medication noncompliance. (4) HTN (hypertension) Current Visit: Yes Status: Acute Qualifiers: Hypertension type: essential hypertension Qualified Code(s): I10 - Essential (primary) hypertension Plan to address problem: monitor uop q shift, diuresis, continue medical management. (5) DVT prophylaxis Current Visit: No Status: Acute Objective - Constitutional Vitals: Vital Signs - 12hr 08/29/17 08/29/17 08/29/17 04:07 08:03 08:15 Temperature 98.2 F Pulse Rate 68 Pulse Rate [ 75 65 Bilateral Throughout] Respiratory 18 Rate Respiratory 18 16 Rate [Bilateral Throughout] Blood Pressure 166/87 O2 Sat by Pulse 96 Oximetry 08/29/17 11:03 Temperature Pulse Rate Pulse Rate [ Bilateral Throughout] Respiratory 20 Rate Respiratory Rate [Bilateral Throughout] Blood Pressure O2 Sat by Pulse Oximetry General appearance: Present: no acute distress, well-nourished - EENT Eyes: PERRL, EOM intact ENT: hearing intact, clear oral mucosa Ears: bilateral: normal - Neck Neck: supple, normal ROM - Respiratory Respiratory effort: normal Respiratory: bilateral: CTA - Breasts Breasts: normal - Cardiovascular Rhythm: regular Heart Sounds: Present: S1 & S2. Absent: gallop, rub Extremities: pulses intact, No edema, normal color, Full ROM - Gastrointestinal General gastrointestinal: Present: soft, non-tender, non-distended, normal bowel sounds - Genitourinary Female genitourinary: normal - Integumentary Integumentary: clear, warm, dry - Musculoskeletal Musculoskeletal: 1, strength equal bilaterally - Neurologic Neurologic: moves all extremities - Psychiatric Psychiatric: memory intact, appropriate mood/affect, intact judgment & insight - Labs CBC & Chem 7: 08/27/17 08:00 08/27/17 08:00
[2017-08-29] MEDS: TYLENOL PO PRN (22:42)
[2017-08-30] MEDS: MORPHINE IV PRN ×3 (01:12→19:13)
[2017-08-30] MEDS: DUONEB *Not for PRN Use IH SCH ×3 (07:45→20:59)
[2017-08-30 08:22] LABS: Basophils % (Auto) 0.5 % (0.0-1.8); Eosinophils % (Auto) 0.7 % (0.0-4.3); Hematocrit 37.2 % (30.3-42.9); Hemoglobin 12.5 gm/dl (10.1-14.3); Mean Corpuscular HGB Conc 34 % (30-34); Mean Corpuscular Hemoglobin 31 pg (28-32); Mean Corpuscular Volume 93 fl (79-97); Platelet Count 205 K/mm3 (140-440); Red Blood Count 3.99 M/mm3 (3.65-5.03); Red Cell Distribution Width 14.7 % (13.2-15.2); White Blood Count 7.7 K/mm3 (4.5-11.0)
[2017-08-30 08:29] LABS: Alanine Aminotransferase 16 units/L (7-56); Albumin 3.8 g/dL (3.9-5); Albumin/Globulin Ratio 1.2 %; Alkaline Phosphatase 55 units/L (35-129); Anion Gap 21 mmol/L; BUN/Creatinine Ratio 17; Blood Urea Nitrogen 10 mg/dL (7-17); Calcium 8.9 mg/dL (8.4-10.2); Carbon Dioxide 24 mmol/L (22-30); Chloride 98.3 mmol/L (98-107); Glucose 111 mg/dL (65-100); Potassium 3.9 mmol/L (3.6-5.0); Sodium 139 mmol/L (137-145)
[2017-08-30] MEDS: ZESTRIL PO SCH (09:12)
[2017-08-30] MEDS: LASIX PO SCH (09:12)
[2017-08-30] MEDS: BABY ASPIRIN PO SCH (09:12)
[2017-08-30] MEDS: ALDACTONE PO SCH (09:12)
[2017-08-30] MEDS: LOPRESSOR PO SCH ×2 (09:12→21:36)
[2017-08-30] MEDS: PROTONIX PO SCH (09:13)
--- NOTE | 2017-08-30 10:00 | Progress Note ---
Assessment and Plan Assessment and plan: Acute on chronic systolic heart failure Echo 03/2016: EF 15-20%, RVSP 53mmHg. Repeat Echo. Cardiology consultation Continue lasix, metoprolol, lisinopril LHC completed on 04/01/16 revealed normal coronaries acute hypoxemic respiratory failure. Supplemental oxygen,nebs, aspiration precautions, incentive spirometry, diuresis Non-ischemic cardiomyopathy Cardiology consultation Hypertension continue metoprolol, lisinopril Asthma. stable GERD History Interval history: No new issues overnight Hospitalist Physical - Constitutional Vitals: Temp Pulse Resp BP Pulse Ox 98.6 F 79 18 174/89 98 08/29/17 21:03 08/29/17 22:36 08/30/17 08:57 08/29/17 22:36 08/29/17 22:00 General appearance: Present: no acute distress, well-nourished - EENT Eyes: Present: PERRL, EOM intact ENT: hearing intact, clear oral mucosa, dentition normal - Neck Neck: Present: supple, normal ROM - Respiratory Respiratory effort: normal Respiratory: bilateral: CTA - Cardiovascular Rhythm: regular Heart Sounds: Present: S1 & S2. Absent: gallop, rub - Extremities Extremities: no ischemia, No edema, Full ROM - Abdominal General gastrointestinal: soft, non-tender, non-distended, normal bowel sounds - Integumentary Integumentary: Present: clear, warm, dry - Neurologic Neurologic: CNII-XII intact, moves all extremities Results - Labs CBC & Chem 7: 08/30/17 07:19 08/30/17 07:19 Labs: Laboratory Last Values WBC 7.7 K/mm3 (4.5-11.0) 08/30/17 07:19 RBC 3.99 M/mm3 (3.65-5.03) 08/30/17 07:19 Hgb 12.5 gm/dl (10.1-14.3) 08/30/17 07:19 Hct 37.2 % (30.3-42.9) 08/30/17 07:19 MCV 93 fl (79-97) 08/30/17 07:19 MCH 31 pg (28-32) 08/30/17 07:19 MCHC 34 % (30-34) 08/30/17 07:19 RDW 14.7 % (13.2-15.2) 08/30/17 07:19 Plt Count 205 K/mm3 (140-440) 08/30/17 07:19 Lymph % (Auto) 13.9 % (13.4-35.0) 08/30/17 07:19 [place] % (Auto) 9.1 % (0.0-7.3) H 08/30/17 07:19 Eos % (Auto) 0.7 % (0.0-4.3) 08/30/17 07:19 Baso % (Auto) 0.5 % (0.0-1.8) 08/30/17 07:19 Lymph # 1.1 K/mm3 (1.2-5.4) L 08/30/17 07:19 [place] # 0.7 K/mm3 (0.0-0.8) 08/30/17 07:19 Eos # 0.1 K/mm3 (0.0-0.4) 08/30/17 07:19 Baso # 0.0 K/mm3 (0.0-0.1) 08/30/17 07:19 Seg Neutrophils % 75.8 % (40.0-70.0) H 08/30/17 07:19 Seg Neutrophils # 5.8 K/mm3 (1.8-7.7) 08/30/17 07:19 Sodium 139 mmol/L (137-145) 08/30/17 07:19 Potassium 3.9 mmol/L (3.6-5.0) 08/30/17 07:19 Chloride 98.3 mmol/L (98-107) 08/30/17 07:19 Carbon Dioxide 24 mmol/L (22-30) 08/30/17 07:19 Anion Gap 21 mmol/L 08/30/17 07:19 BUN 10 mg/dL (7-17) 08/30/17 07:19 Creatinine 0.6 mg/dL (0.7-1.2) L 08/30/17 07:19 Estimated GFR > 60 ml/min 08/30/17 07:19 BUN/Creatinine Ratio 17 % 08/30/17 07:19 Glucose 111 mg/dL (65-100) H 08/30/17 07:19 Calcium 8.9 mg/dL (8.4-10.2) 08/30/17 07:19 Total Bilirubin 0.30 mg/dL (0.1-1.2) 08/30/17 07:19 AST 21 units/L (5-40) 08/30/17 07:19 ALT 16 units/L (7-56) 08/30/17 07:19 Alkaline Phosphatase 55 units/L (35-129) 08/30/17 07:19 Total Creatine Kinase 92 units/L (30-135) 08/27/17 20:17 CK-MB (CK-2) 2.3 ng/mL (0.0-4.0) 08/27/17 20:17 CK-MB (CK-2) Rel Index 2.5 (0-4) 08/27/17 20:17 Troponin T < 0.010 ng/mL (0.00-0.029) 08/27/17 20:17 Total Protein 7.0 g/dL (6.3-8.2) 08/30/17 07:19 Albumin 3.8 g/dL (3.9-5) L 08/30/17 07:19 Albumin/Globulin Ratio 1.2 % 08/30/17 07:19
--- NOTE | 2017-08-30 11:48 | XRay Report ---
Chest 2 views: Compared to 08/27/17. History: CHF. Findings: Cardiomegaly. Trachea is midline. Mild pulmonary venous congestion. No consolidation or pleural effusion. No significant interval change. Impression: No significant interval change.
[2017-08-31] MEDS: MUCINEX ER PO SCH ×2 (00:06→10:10)
[2017-08-31] MEDS: TYLENOL PO PRN (00:06)
[2017-08-31] MEDS: MORPHINE IV PRN (02:51)
[2017-08-31] MEDS: DUONEB *Not for PRN Use IH SCH ×2 (07:43→13:42)
[2017-08-31 08:23] VITALS: BP 159/87
[2017-08-31] MEDS: ZESTRIL PO SCH (10:10)
[2017-08-31] MEDS: PROTONIX PO SCH (10:11)
[2017-08-31] MEDS: LASIX PO SCH (10:11)
[2017-08-31] MEDS: LOPRESSOR PO SCH (10:12)
[2017-08-31] MEDS: BABY ASPIRIN PO SCH (10:13)
[2017-08-31] MEDS: ALDACTONE PO SCH (10:13)
--- NOTE | 2017-08-31 10:24 | Progress Note ---
Assessment and Plan Assessment and plan: Acute on chronic systolic heart failure Echo 03/2016: EF 15-20%,. Repeat Echo yesterday revealed EF of 30-35% with moderate global hypokinesis of the left ventricle. RVSP 47 mmHg. Cardiology consultation Continue lasix, metoprolol, lisinopril LHC completed on 04/01/16 revealed normal coronaries Acute hypoxemic respiratory failure. Supplemental oxygen,nebs, aspiration precautions, incentive spirometry, diuresis Non-ischemic cardiomyopathy Cardiology consultation Mild pulmonary hypertension. Hypertension continue metoprolol, lisinopril Asthma. stable GERD History Interval history: No new issues overnight Hospitalist Physical - Constitutional Vitals: Temp Pulse Resp BP Pulse Ox 98.3 F 81 18 159/87 96 08/31/17 07:45 08/31/17 10:12 08/31/17 07:45 08/31/17 10:13 08/31/17 07:45 General appearance: Present: no acute distress, well-nourished - EENT Eyes: Present: PERRL, EOM intact ENT: hearing intact, clear oral mucosa, dentition normal - Neck Neck: Present: supple, normal ROM - Respiratory Respiratory effort: normal Respiratory: bilateral: CTA - Cardiovascular Rhythm: regular Heart Sounds: Present: S1 & S2. Absent: gallop, rub - Extremities Extremities: no ischemia, No edema, Full ROM - Abdominal General gastrointestinal: soft, non-tender, non-distended, normal bowel sounds - Integumentary Integumentary: Present: clear, warm, dry - Neurologic Neurologic: CNII-XII intact, moves all extremities Results - Labs CBC & Chem 7: 08/30/17 07:19 08/30/17 07:19 Labs: Laboratory Last Values WBC 7.7 K/mm3 (4.5-11.0) 08/30/17 07:19 RBC 3.99 M/mm3 (3.65-5.03) 08/30/17 07:19 Hgb 12.5 gm/dl (10.1-14.3) 08/30/17 07:19 Hct 37.2 % (30.3-42.9) 08/30/17 07:19 MCV 93 fl (79-97) 08/30/17 07:19 MCH 31 pg (28-32) 08/30/17 07:19 MCHC 34 % (30-34) 08/30/17 07:19 RDW 14.7 % (13.2-15.2) 08/30/17 07:19 Plt Count 205 K/mm3 (140-440) 08/30/17 07:19 Lymph % (Auto) 13.9 % (13.4-35.0) 08/30/17 07:19 [place] % (Auto) 9.1 % (0.0-7.3) H 08/30/17 07:19 Eos % (Auto) 0.7 % (0.0-4.3) 08/30/17 07:19 Baso % (Auto) 0.5 % (0.0-1.8) 08/30/17 07:19 Lymph # 1.1 K/mm3 (1.2-5.4) L 08/30/17 07:19 [place] # 0.7 K/mm3 (0.0-0.8) 08/30/17 07:19 Eos # 0.1 K/mm3 (0.0-0.4) 08/30/17 07:19 Baso # 0.0 K/mm3 (0.0-0.1) 08/30/17 07:19 Seg Neutrophils % 75.8 % (40.0-70.0) H 08/30/17 07:19 Seg Neutrophils # 5.8 K/mm3 (1.8-7.7) 08/30/17 07:19 Sodium 139 mmol/L (137-145) 08/30/17 07:19 Potassium 3.9 mmol/L (3.6-5.0) 08/30/17 07:19 Chloride 98.3 mmol/L (98-107) 08/30/17 07:19 Carbon Dioxide 24 mmol/L (22-30) 08/30/17 07:19 Anion Gap 21 mmol/L 08/30/17 07:19 BUN 10 mg/dL (7-17) 08/30/17 07:19 Creatinine 0.6 mg/dL (0.7-1.2) L 08/30/17 07:19 Estimated GFR > 60 ml/min 08/30/17 07:19 BUN/Creatinine Ratio 17 % 08/30/17 07:19 Glucose 111 mg/dL (65-100) H 08/30/17 07:19 Calcium 8.9 mg/dL (8.4-10.2) 08/30/17 07:19 Total Bilirubin 0.30 mg/dL (0.1-1.2) 08/30/17 07:19 AST 21 units/L (5-40) 08/30/17 07:19 ALT 16 units/L (7-56) 08/30/17 07:19 Alkaline Phosphatase 55 units/L (35-129) 08/30/17 07:19 Total Creatine Kinase 92 units/L (30-135) 08/27/17 20:17 CK-MB (CK-2) 2.3 ng/mL (0.0-4.0) 08/27/17 20:17 CK-MB (CK-2) Rel Index 2.5 (0-4) 08/27/17 20:17 Troponin T < 0.010 ng/mL (0.00-0.029) 08/27/17 20:17 Total Protein 7.0 g/dL (6.3-8.2) 08/30/17 07:19 Albumin 3.8 g/dL (3.9-5) L 08/30/17 07:19 Albumin/Globulin Ratio 1.2 % 08/30/17 07:19
--- NOTE | 2017-08-31 11:22 | Consultation ---
History of Present Illness Consult date: 08/31/17 Requesting physician: HEMANTH GONZALES Consult reason: congestive heart failure History of present illness: This is a 47-year-old Afro-Turkmen female with known history of nonischemic cardiomyopathy based on cardiac cath done last year who follows with Dr. robert office and was in [place] heart classification 1. Since June patient has not been consistent with her congestive heart failure medications and also a diet and has been having increased shortness of breath with minimal exertion came to the hospital for decompensated congestive heart failure. Patient denies any chest pain nausea vomiting or palpitations or syncope. Patient has been the hospital with adequate diuresis and patient currently is shortness of breath for years and is compensated heart failure Past History Past Medical History: heart failure, hypertension, other (asthma) Past Surgical History: hysterectomy, Other (Heart cath) Social history: , smoking. denies: alcohol abuse, prescription drug abuse Family history: CAD, hypertension Medications and Allergies Allergies Allergy/AdvReac Type Severity Reaction Status Date / Time No Known Allergies Allergy Verified 01/07/16 11:32 Home Medications Medication Instructions Recorded Confirmed Last Taken Type ALBUTEROL Inhaler [ProAir HFA 2 puff IH QID PRN #1 inha 04/01/16 08/27/17 Unknown Rx Inhaler] Albuterol Sulfate [Albuterol 0.63% 0.63 mg IH TID PRN #10 vial.neb 04/01/16 Unknown Rx NEBS] Furosemide [Lasix TAB] 40 mg PO QDAY #30 tablet 04/01/16 08/27/17 05/13/17 Rx Aspirin [Aspirin BABY CHEW TAB] 81 mg PO QDAY #30 tab.chew 05/20/17 08/27/17 Rx Lisinopril [Zestril TAB] 40 mg PO QDAY #30 tablet 05/20/17 08/27/17 Unknown Rx Metoprolol [Lopressor TAB] 25 mg PO BID #60 tablet 05/20/17 08/27/17 Unknown Rx Nitroglycerin [Nitrostat] 0.4 mg SL Q5M PRN #20 tab 05/20/17 08/27/17 Unknown Rx Pantoprazole [Protonix] 40 mg PO QDAY #30 tablet 05/20/17 08/27/17 08/26/17 Rx Spironolactone [Aldactone] 50 mg PO QDAY #30 tablet 05/20/17 08/27/17 08/26/17 Rx Active Meds: Active Medications Acetaminophen (Tylenol) 650 mg PO Q6H PRN PRN Reason: Pain, Mild (1-3) Last Admin: 08/31/17 00:06 Dose: 650 mg Albuterol (Proventil) 2.5 mg IH Q4HRT PRN PRN Reason: Shortness Of Breath Albuterol/Ipratropium (Duoneb *Not For Prn Use*) 1 ampul IH TIDRT [facility] Last Admin: 08/31/17 07:43 Dose: 1 ampul Aspirin (Baby Aspirin) 81 mg PO QDAY [facility] Last Admin: 08/31/17 10:13 Dose: 81 mg Furosemide (Lasix) 40 mg PO QDAY [facility] Last Admin: 08/31/17 10:11 Dose: 40 mg Guaifenesin (Mucinex Er) 600 mg PO BID [facility] Last Admin: 08/31/17 10:10 Dose: 600 mg Lisinopril (Zestril) 40 mg PO QDAY [facility] Last Admin: 08/31/17 10:10 Dose: 40 mg Metoprolol Tartrate (Lopressor) 25 mg PO BID [facility] Last Admin: 08/31/17 10:12 Dose: 25 mg Morphine Sulfate (Morphine) 2 mg IV Q4H PRN PRN Reason: Pain, Moderate (4-6) Last Admin: 08/31/17 02:51 Dose: 2 mg Pantoprazole (Protonix) 40 mg PO QDAY [facility] Last Admin: 08/31/17 10:11 Dose: 40 mg Spironolactone (Aldactone) 50 mg PO QDAY [facility] Last Admin: 08/31/17 10:13 Dose: 50 mg Review of Systems All systems: negative (hpi) Physical Examination Vital Signs Temp Pulse Resp BP Pulse Ox 98.3 F 82 16 179/118 97 08/27/17 07:48 08/27/17 07:48 08/27/17 07:48 08/27/17 07:48 08/27/17 07:48 General appearance: no acute distress, well-nourished HEENT: Positive: PERRL, Mucus Membranes Moist Neck: Positive: neck supple, trachea midline Cardiac: Positive: Reg Rate and Rhythm, S1/S2. Negative: Audible Murmur Lungs: Positive: clear to auscultation, Normal Breath Sounds Neuro: Positive: Grossly Intact Abdomen: Positive: Soft, Active Bowel Sounds. Negative: Tender, Distended Female genitourinary: deferred Skin: Positive: Clear Incision: Cardiac Cath Site Musculoskeletal: No Pain, Normal Range of Motion Extremities: Present: normal. Absent: edema Results 08/30/17 07:19 08/30/17 07:19 - Imaging and Cardiology Echo: report reviewed (08/29/2017 ef 30% moderate tr and mild pulmonary htn ) Cardiac cath: report reviewed (2015 normal coronaries ef 15%) - EKG Interpretation EKG: interpreted by ERMD Assessment and Plan acute on chronic systolic heart failure htn chol respiratory failure resolved rec patient is a compensated heart failure discussed with patient, importance of taking medications and compliant with diet patient will follow with primary critical care technician 1 week time every discharge from cardiovascular
--- NOTE | 2017-08-31 11:42 | Discharge Summary ---
Providers - Providers Date of Admission: 08/27/17 11:51 Date of discharge: 08/31/17 Attending physician: HEMANTH GONZALES 08/30/17 09:55 Consult to Physician [CONS] Routine Consulting Provider: KETURAH MARINELLI Reason For Exam: chf Place consult to:: Dr Marinelli Notified:: yes Phone number called:: [phone] Was contact made?: Yes Primary care physician: HOG PUSHER Hospitalization Reason for admission: sob Condition: Fair Hospital course: This is a 47-year-old female with known history of nonischemic cardiomyopathy based on cardiac cath done last year and [place] heart classification 1 presented to the emergency department with diagnosis of acute on chronic systolic heart failure. Since June, patient has not been consistent with her congestive heart failure medications. Patient reported increased shortness of breath with minimal exertion. Patient denies any chest pain nausea vomiting or palpitations or syncope. During the hospitalization, patient received adequate diuresis and her heart failure stabilized. Repeat echocardiogram revealed improvement in her EF to 30%. Cardiology saw the patient in consultation and express the importance of taking medications and compliance with diet. Dedicated discharge time 31 minutes. Disposition: DC-01 TO HOME OR SELFCARE Time spent for discharge: 31 - Discharge Diagnoses (1) Acute respiratory failure Status: Acute (2) Acute decompensated heart failure Status: Acute (3) Acute systolic HF (heart failure) Status: Acute (4) Hypertension Status: Acute (5) Noncompliance with medication regimen Status: Acute Core Measure Documentation - Palliative Care Palliative Care/ Comfort Measures: Not Applicable - Core Measures Any of the following diagnoses?: heart failure - Heart Failure Discharge Requirements BROOK/ARB for LVSD if EF <40%: Yes Beta kash at discharge: Yes Exam - Constitutional Vitals: Temp Pulse Resp BP Pulse Ox 98.3 F 81 20 159/87 96 08/31/17 07:45 08/31/17 10:12 08/31/17 07:53 08/31/17 10:13 08/31/17 07:45 General appearance: Present: no acute distress, well-nourished - EENT Eyes: Present: PERRL ENT: hearing intact, clear oral mucosa - Neck Neck: Present: supple, normal ROM - Respiratory Respiratory effort: normal Respiratory: bilateral: CTA - Cardiovascular Heart Sounds: Present: S1 & S2. Absent: rub, click - Extremities Extremities: pulses symmetrical, No edema Peripheral Pulses: within normal limits - Abdominal General gastrointestinal: Present: soft, non-tender, non-distended, normal bowel sounds Female genitourinary: Present: normal - Integumentary Integumentary: Present: clear, warm, dry - Musculoskeletal Musculoskeletal: gait normal, strength equal bilaterally - Psychiatric Psychiatric: appropriate mood/affect, intact judgment & insight - Neurologic Neurologic: CNII-XII intact, moves all extremities Plan Activity: no restrictions Weight Bearing Status: Full Weight Bearing Diet: low fat, low cholesterol, low salt Follow up with: PRIMARY CARE, [Primary Care Provider] - 3-5 Days WENDI BEARD MD [Staff Physician] - 7 Days Prescriptions: ALBUTEROL Inhaler [ProAir HFA Inhaler] 2 puff IH QID PRN #1 inha PRN Reason: Shortness Of Breath Albuterol Sulfate [Albuterol 0.63% NEBS] 0.63 mg IH TID PRN #10 vial.neb PRN Reason: Wheezing Aspirin [Aspirin BABY CHEW TAB] 81 mg PO QDAY #30 tab.chew Furosemide [Lasix TAB] 40 mg PO QDAY #30 tablet Lisinopril [Zestril TAB] 40 mg PO QDAY #30 tablet Metoprolol [Lopressor TAB] 25 mg PO BID #60 tablet Nitroglycerin [Nitrostat] 0.4 mg SL Q5M PRN #20 tab PRN Reason: Chest Pain Pantoprazole [Protonix TAB] 40 mg PO QDAY #30 tablet Spironolactone [Aldactone] 50 mg PO QDAY #30 tablet
== END 2017-08-31 14:00 | disposition home or self-care (01) | DRG 291 ==
LOC: ED 07:27 → 4A 11:51
PROVIDERS: ADMIT Internal Medicine; ATTEND Hospitalist
PROC: 3E0234Z Introduction of Serum, Toxoid and Vaccine into Muscle, Percutaneous Approach (ICD-10-PCS; principal; 2017-08-27)
DX: I11.0 Hypertensive heart disease with heart failure (principal); J96.01 Acute respiratory failure with hypoxia; I50.23 Acute on chronic systolic (congestive) heart failure; I42.9 Cardiomyopathy, unspecified; F17.200 Nicotine dependence, unspecified, uncomplicated; K21.9 Gastro-esophageal reflux disease without esophagitis; J45.909 Unspecified asthma, uncomplicated; Z90.710 Acquired absence of both cervix and uterus; Z98.61 Coronary angioplasty status; Z79.899 Other long term (current) drug therapy; Z23 Encounter for immunization; Z82.49 Family history of ischemic heart disease and other diseases of the circulatory system; Z91.14 Patient's other noncompliance with medication regimen; Z79.82 Long term (current) use of aspirin
CPT/HCPCS: 36415; 71020; 80048; 80053; 82550; 82553; 84484; 85025; 90471; 90686; 90732; 93005; 93010; 93306; 94640; 96365; 96375; 99285; J1940; J2270; J2405; J3010

== ENCOUNTER 2017-10-24 14:35 | Emergency (ER) | payer OTHER ==
[2017-10-24 14:44] VITALS: BP 150/96
--- NOTE | 2017-10-24 15:28 | Emergency Department Report ---
Minor Respiratory - HPI Chief Complaint: Upper Respiratory Infection Stated Complaint: COLD/FEVER Time Seen by Provider: 10/24/17 15:16 Duration: 5 Days Pain Location: Chest Severity: mild Minor Respiratory: Yes Able to Tolerate Fluids, Yes Cough ( clear sputum), Yes Fever (MAXIMUM TEMPERATURE of 100), No Rhinorrhea, No Sore Throat, No Ear Pain, No Sick Contacts, No Hemoptysis, No Chest Pain, No Shortness of Breath ED Review of Systems ROS: Stated complaint: COLD/FEVER Other details as noted in HPI Comment: All other systems reviewed and negative ED Past Medical Hx - Past Medical History Hx Hypertension: Yes Hx Congestive Heart Failure: Yes Hx Diabetes: No Hx Asthma: Yes Hx COPD: No - Surgical History Additional Surgical History: hysterectomy, heart cath (2016). EF 30% - Social History Smoking Status: Former Smoker Substance Use Type: None - Medications Home Medications: Home Medications Medication Instructions Recorded Confirmed Last Taken Type Albuterol Sulfate [Albuterol 0.63% 0.63 mg IH TID PRN #10 vial.neb 08/31/17 Unknown Rx NEBS] Aspirin [Aspirin BABY CHEW TAB] 81 mg PO QDAY #30 tab.chew 08/31/17 Unknown Rx Furosemide [Lasix TAB] 40 mg PO QDAY #30 tablet 08/31/17 Unknown Rx Lisinopril [Zestril TAB] 40 mg PO QDAY #30 tablet 08/31/17 Unknown Rx Metoprolol [Lopressor TAB] 25 mg PO BID #60 tablet 08/31/17 Unknown Rx Nitroglycerin [Nitrostat] 0.4 mg SL Q5M PRN #20 tab 08/31/17 Unknown Rx Pantoprazole [Protonix TAB] 40 mg PO QDAY #30 tablet 08/31/17 Unknown Rx Spironolactone [Aldactone] 50 mg PO QDAY #30 tablet 08/31/17 Unknown Rx ALBUTEROL Inhaler [ProAir HFA 2 puff IH QID PRN #1 inha 10/24/17 Unknown Rx Inhaler] Azithromycin [Zithromax Z-TERRY] 250 mg PO DAILY #6 tablet 10/24/17 Unknown Rx predniSONE [Deltasone] 20 mg PO QDAY #5 tab 10/24/17 Unknown Rx Minor Respiratory Exam - Exam General: Vital signs noted. No distress. Alert and acting appropriately. HEENT: Yes Moist Mucous Membranes, No Pharyngeal Erythema, No Pharyngeal Exudates, No Rhinorrhea, No Conjuctival Injection, No Frontal Tenderness, No Maxillary Tenderness Ear: Neither TM Bulge, Neither TM Erythema, Neither EAC Pain, Neither EAC Discharge Neck: Yes Supple, No Adenopathy Lungs: Yes Good Air Exchange, No Wheezes, No [place], No Stridor, No Cough, No Labored Respirations, No Retractions, No Use of Accessory Muscles, No Other Abnormal Lung Sounds Heart: Yes Regular, No Murmur Abdomen: Yes Normal Bowel Sounds, No Tenderness, No Peritoneal Signs Skin: No Rash, No Edema Neurologic: Alert and oriented, no deficits. Musculoskeletal: Unremarkable. ED Course Vital Signs 10/24/17 14:39 Temperature 98.9 F Pulse Rate 84 Respiratory 18 Rate Blood Pressure 150/96 O2 Sat by Pulse 100 Oximetry ED Medical Decision Making - Medical Decision Making Patient is a 47-year-old black female with history of asthma who has been coughing for 5 days. Patient has history of asthma asthma but is not wheezing at this time. Patient states she does not smoke however she does smell smoke were at least that she has been exposed to secondhand smoke. Patient be treated for acute bronchitis with possible smoke exposure. Patient was started on antibiotics and prednisone and albuterol inhaler be discharged home Critical care attestation.: If time is entered above; I have spent that time in minutes in the direct care of this critically ill patient, excluding procedure time. ED Disposition Clinical Impression: Acute bronchitis Qualifiers: Bronchitis organism: unspecified organism Qualified Code(s): J20.9 - Acute bronchitis, unspecified Disposition: DC- TO HOME OR SELFCARE Is pt being admited?: No Does the pt Need Aspirin: No Condition: Stable Instructions: Acute Bronchitis (ED) Prescriptions: ALBUTEROL Inhaler [ProAir HFA Inhaler] 2 puff IH QID PRN #1 inha PRN Reason: Shortness Of Breath Azithromycin [Zithromax Z-TERRY] 250 mg PO DAILY #6 tablet predniSONE [Deltasone] 20 mg PO QDAY #5 tab Forms: Work/School Release Form(ED)
== END 2017-10-24 15:59 | disposition home or self-care (01) ==
LOC: ED 14:35
DX: J20.9 Acute bronchitis, unspecified (principal); I11.0 Hypertensive heart disease with heart failure; I50.9 Heart failure, unspecified; Z87.891 Personal history of nicotine dependence; Z79.82 Long term (current) use of aspirin
CPT/HCPCS: 99282

== ENCOUNTER 2018-04-06 11:25 | Emergency (ER) | payer OTHER ==
[2018-04-06] MEDS ORDERED: MOTRIN PO ONE (12:31)
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
--- NOTE | 2018-04-06 12:40 | Emergency Department Report ---
Blank Doc - Documentation Documentation: Patient is 47-year-old [place] female presented with 3 weeks of cough, congestion productive yellow sputum with shortness of breath and soreness in the chest. Brief physical exam patient is clear lungs. The patient does have a bronchitic cough. X-ray taken rule out pneumonia.
[2018-04-06] MEDS ORDERED: ATROVENT IH ONE (12:41)
[2018-04-06] MEDS ORDERED: PROVENTIL IH ONE (12:41)
--- NOTE | 2018-04-06 13:09 | XRay Report ---
ROUTINE CHEST, TWO VIEWS: HISTORY: Productive cough. The trachea, heart, mediastinal contour, lung poe and bony thorax are unremarkable. Cardiomegaly and pulmonary venous congestion have resolved since 08/30/17. IMPRESSION: Unremarkable chest x-ray.
[2018-04-06 13:59] LABS: Basophils # (Auto) 0.1 K/mm3 (0.0-0.1); Basophils % (Auto) 0.8 % (0.0-1.8); Eosinophils # (Auto) 0.1 K/mm3 (0.0-0.4); Hemoglobin 15.9 gm/dl (10.1-14.3); Lymphocytes # (Auto) 1.9 K/mm3 (1.2-5.4); Lymphocytes % (Auto) 31.9 % (13.4-35.0); Mean Corpuscular HGB Conc 34 % (30-34); Mean Corpuscular Hemoglobin 32 pg (28-32); Mean Corpuscular Volume 94 fl (79-97); Monocytes # (Auto) 0.5 K/mm3 (0.0-0.8); Monocytes % (Auto) 8.7 % (0.0-7.3); Platelet Count 262 K/mm3 (140-440); Red Cell Distribution Width 14.2 % (13.2-15.2)
[2018-04-06 14:12] LABS: Alanine Aminotransferase 12 units/L (7-56); Albumin 4.6 g/dL (3.9-5); BUN/Creatinine Ratio 28; Blood Urea Nitrogen 22 mg/dL (7-17); Calcium 9.6 mg/dL (8.4-10.2); Hemolysis Index 25
[2018-04-06] MEDS ORDERED: DELTASONE PO ONE (15:10)
[2018-04-06 16:05] VITALS: BP 150/90
== END 2018-04-06 16:00 | disposition home or self-care (01) ==
LOC: ED 11:25
DX: J06.9 Acute upper respiratory infection, unspecified (principal); J45.41 Moderate persistent asthma with (acute) exacerbation; I11.0 Hypertensive heart disease with heart failure; Z79.82 Long term (current) use of aspirin; Z90.710 Acquired absence of both cervix and uterus
CPT/HCPCS: 36415; 71046; 80053; 83880; 85025; 93005; 93010; 94640; 99284; J7512

== ENCOUNTER 2018-05-21 23:21 | Emergency (ER) | payer OTHER ==
[2018-05-21 23:58] VITALS: BP 137/80
[2018-05-22] MEDS ORDERED: MOTRIN PO ONE (01:26)
[2018-05-22] MEDS ORDERED: BOOSTRIX IM ONE (02:09)
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
== END 2018-05-22 02:40 | disposition home or self-care (01) ==
LOC: ED 23:21
DX: S01.111A Laceration without foreign body of right eyelid and periocular area, initial encounter (principal); S30.810A Abrasion of lower back and pelvis, initial encounter; I11.0 Hypertensive heart disease with heart failure; I50.9 Heart failure, unspecified; J45.909 Unspecified asthma, uncomplicated; Z90.710 Acquired absence of both cervix and uterus; Z79.82 Long term (current) use of aspirin; V89.2XXA Person injured in unspecified motor-vehicle accident, traffic, initial encounter; Y93.89 Activity, other specified; Y92.89 Other specified places as the place of occurrence of the external cause; Y99.8 Other external cause status
CPT/HCPCS: 90471; 90715; 99282

== ENCOUNTER 2019-08-16 18:22 | Emergency (ER) | payer OTHER ==
[2019-08-16] MEDS ORDERED: ASPIRIN 325 MG TAB PO ONE (19:17)
--- NOTE | 2019-08-16 19:17 | Event Note ---
ED Screening Note Date of service: 08/16/19 Time: 19:15 ED Screening Note: 49 y o female with pmh of CHF presents with chest pain worseining with laying down pressure type pain with mild intermittent cough This initial assessment/diagnostic orders/clinical plan/treatment(s) is/are subject to change based on patients health status, clinical progression and re- assessment by fellow clinical providers in the ED. Further treatment and workup at subsequent clinical providers discretion. Patient/guardian urged not to elope from the ED as their condition may be serious if not clinically assessed and managed. Initial orders include: labs main eval
--- NOTE | 2019-08-16 19:57 | XRay Report ---
CHEST 1 VIEW INDICATION / CLINICAL INFORMATION: Chest Pain. COMPARISON: None available. FINDINGS: SUPPORT DEVICES: None. HEART / MEDIASTINUM: No significant abnormality. LUNGS / PLEURA: No significant pulmonary or pleural abnormality. No pneumothorax. ADDITIONAL FINDINGS: No significant additional findings. IMPRESSION: 1. No acute findings. Signer Name: Brady Manrique MD Signed: 08/16/2019 7:52 PM Workstation Name: [id number]
[2019-08-16] MEDS ORDERED: predniSONE 20 MG TAB PO ONE (20:19)
[2019-08-16] MEDS ORDERED: IPRATROPIUM 0.02% NEBU 2.5 ML IH ONE (20:19)
[2019-08-16] MEDS ORDERED: ALBUTEROL 2.5 MG/3 ML NEBU IH ONE (20:19)
[2019-08-16] MEDS ORDERED: ASPIRIN 325 MG TAB ONE (20:22)
--- NOTE | 2019-08-16 20:23 | Emergency Department Report ---
- General Chief Complaint: Chest Pain Stated Complaint: CHEST PAIN/SOB/RT FOOT SWELLING Time Seen by Provider: 08/16/19 20:17 Source: patient Mode of arrival: Ambulatory Limitations: No Limitations - History of Present Illness Initial Comments: 49-year-old female with history of hypertension, asthma, CHF presents to ED with cough, chest pain, shortness of breath. Patient reports symptoms have been ongoing 5 days. She reports subjective fevers. Patient states she feels as if her asthma has been triggered, however she has not have an inhaler at home. Patient requested a breathing treatment. Patient reports chest pain is across the entire anterior chest, and is worse with cough. Patient also reported some pain and swelling to the top of her right foot. MD Complaint: cough -: days(s) (5) Severity: moderate Consistency: intermittent Improves With: nothing Worsens With: nothing Associated Symptoms: fever, nasal congestion, cough, chest pain, shortness of breath. denies: chills - Related Data Previous Rx's Medication Instructions Recorded Last Taken Type Aspirin [Aspirin BABY CHEW TAB] 81 mg PO QDAY #30 tab.chew 08/31/17 Unknown Rx Furosemide [Lasix TAB] 40 mg PO QDAY #30 tablet 08/31/17 Unknown Rx Lisinopril [Zestril TAB] 40 mg PO QDAY #30 tablet 08/31/17 Unknown Rx Metoprolol [Lopressor TAB] 25 mg PO BID #60 tablet 08/31/17 Unknown Rx Nitroglycerin [Nitrostat] 0.4 mg SL Q5M PRN #20 tab 08/31/17 Unknown Rx Pantoprazole [Protonix TAB] 40 mg PO QDAY #30 tablet 08/31/17 Unknown Rx Spironolactone [Aldactone] 50 mg PO QDAY #30 tablet 08/31/17 Unknown Rx predniSONE [Deltasone] 20 mg PO QDAY #5 tab 10/24/17 Unknown Rx ALBUTEROL Inhaler (OR & NICU) 2 puff IH QID PRN #1 inha 04/06/18 Unknown Rx [ProAir HFA Inhaler] Albuterol Sulfate [Albuterol 0.63% 0.63 mg IH TID PRN #10 vial.neb 04/06/18 Unknown Rx NEBS] Azithromycin [Zithromax Z-TERRY] 250 mg PO DAILY #6 tablet 04/06/18 Unknown Rx Benzonatate [Tessalon Perle] 100 mg PO Q8H PRN #15 capsule 04/06/18 Unknown Rx Cetirizine HCl [Zyrtec] 10 mg PO QAM 14 Days #14 tablet 04/06/18 Unknown Rx Fluticasone [Flonase] 1 spray NS QDAY 14 Days #1 bottle 04/06/18 Unknown Rx Nebulizer Accessories [Sootheneb 1 each MC ONCE #1 each 04/06/18 Unknown Rx [id number] Adult Mask] methylPREDNISolone [Medrol Dose 4 mg PO QAM 6 Days #1 pack 04/06/18 Unknown Rx Terry] Ibuprofen [Motrin 600 MG tab] 600 mg PO Q8H PRN #30 tablet 05/22/18 Unknown Rx Silver Sulfadiazine [Silvadene] 400 gm TP BID #45 cream..g. 05/22/18 Unknown Rx Albuterol Sulfate [Proventil Hfa] 2 puff IH Q4HR PRN #1 hfa.aer.ad 08/16/19 Unknown Rx Benzonatate [Tessalon Perles] 100 mg PO Q8HR PRN #20 capsule 08/16/19 Unknown Rx Naproxen [Naprosyn] 500 mg PO BID #20 tablet 08/16/19 Unknown Rx predniSONE [Deltasone] 50 mg PO QDAY #5 tab 08/16/19 Unknown Rx Allergies Allergy/AdvReac Type Severity Reaction Status Date / Time No Known Allergies Allergy Verified 04/06/18 11:29 ED Review of Systems ROS: Stated complaint: CHEST PAIN/SOB/RT FOOT SWELLING Other details as noted in HPI Comment: All other systems reviewed and negative Constitutional: fever Respiratory: cough, shortness of breath, wheezing Cardiovascular: chest pain (with cough) Gastrointestinal: denies: nausea, vomiting Musculoskeletal: other (reports foot pain) ED Past Medical Hx - Past Medical History Previous Medical History?: Yes Hx Hypertension: Yes Hx Congestive Heart Failure: Yes Hx Diabetes: No Hx Asthma: Yes Hx COPD: No - Surgical History Past Surgical History?: Yes Additional Surgical History: hysterectomy, heart cath (2016). EF 30% - Social History Smoking Status: Never Smoker Substance Use Type: None - Medications Home Medications: Home Medications Medication Instructions Recorded Confirmed Last Taken Type Aspirin [Aspirin BABY CHEW TAB] 81 mg PO QDAY #30 tab.chew 08/31/17 Unknown Rx Furosemide [Lasix TAB] 40 mg PO QDAY #30 tablet 08/31/17 Unknown Rx Lisinopril [Zestril TAB] 40 mg PO QDAY #30 tablet 08/31/17 Unknown Rx Metoprolol [Lopressor TAB] 25 mg PO BID #60 tablet 08/31/17 Unknown Rx Nitroglycerin [Nitrostat] 0.4 mg SL Q5M PRN #20 tab 08/31/17 Unknown Rx Pantoprazole [Protonix TAB] 40 mg PO QDAY #30 tablet 08/31/17 Unknown Rx Spironolactone [Aldactone] 50 mg PO QDAY #30 tablet 08/31/17 Unknown Rx predniSONE [Deltasone] 20 mg PO QDAY #5 tab 10/24/17 Unknown Rx ALBUTEROL Inhaler (OR & NICU) 2 puff IH QID PRN #1 inha 04/06/18 Unknown Rx [ProAir HFA Inhaler] Albuterol Sulfate [Albuterol 0.63% 0.63 mg IH TID PRN #10 vial.neb 04/06/18 Unknown Rx NEBS] Azithromycin [Zithromax Z-TERRY] 250 mg PO DAILY #6 tablet 04/06/18 Unknown Rx Benzonatate [Tessalon Perle] 100 mg PO Q8H PRN #15 capsule 04/06/18 Unknown Rx Cetirizine HCl [Zyrtec] 10 mg PO QAM 14 Days #14 tablet 04/06/18 Unknown Rx Fluticasone [Flonase] 1 spray NS QDAY 14 Days #1 bottle 04/06/18 Unknown Rx Nebulizer Accessories [Sootheneb 1 each MC ONCE #1 each 04/06/18 Unknown Rx [id number] Adult Mask] methylPREDNISolone [Medrol Dose 4 mg PO QAM 6 Days #1 pack 04/06/18 Unknown Rx Terry] Ibuprofen [Motrin 600 MG tab] 600 mg PO Q8H PRN #30 tablet 05/22/18 Unknown Rx Silver Sulfadiazine [Silvadene] 400 gm TP BID #45 cream..g. 05/22/18 Unknown Rx Albuterol Sulfate [Proventil Hfa] 2 puff IH Q4HR PRN #1 hfa.aer.ad 08/16/19 Unknown Rx Benzonatate [Tessalon Perles] 100 mg PO Q8HR PRN #20 capsule 08/16/19 Unknown Rx Naproxen [Naprosyn] 500 mg PO BID #20 tablet 08/16/19 Unknown Rx predniSONE [Deltasone] 50 mg PO QDAY #5 tab 08/16/19 Unknown Rx ED Physical Exam - General Limitations: No Limitations General appearance: alert, in no apparent distress - Head Head exam: Present: atraumatic, normocephalic - Eye Eye exam: Present: normal appearance - ENT ENT exam: Present: mucous membranes moist - Neck Neck exam: Present: normal inspection - Respiratory Respiratory exam: Present: wheezes (scattered), chest wall tenderness, other (frequently coughing on exam). Absent: respiratory distress - Cardiovascular Cardiovascular Exam: Present: regular rate, normal rhythm - GI/Abdominal GI/Abdominal exam: Present: soft. Absent: distended, tenderness - Extremities Exam Extremities exam: Absent: pedal edema, calf tenderness - Neurological Exam Neurological exam: Present: alert, oriented X3 - Psychiatric Psychiatric exam: Present: normal affect, normal mood - Skin Skin exam: Present: warm, dry, intact, normal color ED Course Vital Signs 08/16/19 08/16/19 08/16/19 19:15 20:26 20:30 Temperature 98.3 F Pulse Rate 88 Respiratory 17 Rate Blood Pressure 186/111 182/110 194/112 Blood Pressure [Right] O2 Sat by Pulse 97 100 Oximetry 08/16/19 08/16/19 08/16/19 20:45 21:00 21:16 Temperature Pulse Rate Respiratory Rate Blood Pressure 177/115 177/115 182/120 Blood Pressure [Right] O2 Sat by Pulse 98 99 98 Oximetry 08/16/19 08/16/19 08/16/19 21:30 21:39 21:45 Temperature Pulse Rate 81 81 76 Respiratory 20 20 Rate Blood Pressure 186/110 186/110 182/107 Blood Pressure [Right] O2 Sat by Pulse 96 96 Oximetry 08/16/19 08/16/19 08/16/19 22:00 22:15 22:16 Temperature Pulse Rate 78 78 77 Respiratory 19 23 22 Rate Blood Pressure 182/103 160/96 160/96 Blood Pressure [Right] O2 Sat by Pulse 94 96 97 Oximetry 08/16/19 08/16/19 08/16/19 22:30 22:45 23:00 Temperature Pulse Rate 77 73 70 Respiratory 24 18 15 Rate Blood Pressure 146/86 148/86 145/86 Blood Pressure [Right] O2 Sat by Pulse 92 94 97 Oximetry 08/17/19 01:36 Temperature 98.3 F Pulse Rate 70 Respiratory 15 Rate Blood Pressure Blood Pressure 145/86 [Right] O2 Sat by Pulse 97 Oximetry ED Medical Decision Making - EKG Data -: EKG Interpreted by Me EKG shows normal: sinus rhythm, axis, QRS complexes - EKG Data When compared to previous EKG there are: no significant change (compared to 2018) Interpretation: other (prolonged QT; T wave inversions in lateral leads) - Radiology Data Radiology results: report reviewed, image reviewed - Medical Decision Making 49-year-old female with chest wall tenderness secondary to URI and asthma exacerbation. Nebulizer treatment given, patient felt much better. Also says normal, patient is in no respiratory distress. She is elevated, however she states she did not take her BP meds today because she had a fever. Clonidine given here in ED. EKG shows no ST changes, no change compared to last year. Chest pain is likely due to costochondritis. Prescriptions given. Outpatient follow-up advised. Return precautions given. - Differential Diagnosis asthma, pulmonary edema, pneumonia Critical care attestation.: If time is entered above; I have spent that time in minutes in the direct care of this critically ill patient, excluding procedure time. ED Disposition Clinical Impression: Acute asthma exacerbation, URI (upper respiratory infection), Acute costochondritis, Uncontrolled hypertension Disposition: DC-01 TO HOME OR SELFCARE Is pt being admited?: No Condition: Stable Instructions: Asthma (ED), Costochondritis (ED), Upper Respiratory Infection (ED) Prescriptions: predniSONE [Deltasone] 50 mg PO QDAY #5 tab Naproxen [Naprosyn] 500 mg PO BID #20 tablet Albuterol Sulfate [Proventil Hfa] 2 puff IH Q4HR PRN #1 hfa.aer.ad PRN Reason: Wheezing Benzonatate [Tessalon Perles] 100 mg PO Q8HR PRN #20 capsule PRN Reason: Cough Referrals: JEROME DIAS MD [Primary Care Provider] - 3-5 Days [facility] [Provider Group] - 3-5 Days JNOO MARK MD [Staff Physician] - 3-5 Days Forms: Work/School Release Form(ED) Time of Disposition: 22:20
[2019-08-16] MEDS ORDERED: cloNIDine 0.2 MG TAB ONE (21:37)
[2019-08-16] MEDS ORDERED: cloNIDine 0.2 MG TAB PO ONE (21:38)
[2019-08-17 01:35] VITALS: BP 145/86
== END 2019-08-16 23:00 | disposition home or self-care (01) ==
LOC: ED 18:22
DX: J45.901 Unspecified asthma with (acute) exacerbation (principal); J06.9 Acute upper respiratory infection, unspecified; M94.0 Chondrocostal junction syndrome [Tietze]; I11.0 Hypertensive heart disease with heart failure; I50.9 Heart failure, unspecified; Z90.710 Acquired absence of both cervix and uterus; Z79.899 Other long term (current) drug therapy
CPT/HCPCS: 71045; 93005; 93010; 94640; 99284; J7512

== ENCOUNTER 2019-11-05 06:24 | Emergency (ER) | payer OTHER ==
[2019-11-05 06:37] VITALS: BP 157/106
--- NOTE | 2019-11-05 09:22 | Emergency Department Report ---
Chief Complaint: Sore Throat Stated Complaint: GAXIOLA/FEVER/SWEATS/THRAOT PAIN/N/V/D Time Seen by Provider: 11/05/19 08:45 - HPI History of Present Illness: This 49-year-old female presents to the ED complaining of mouth and throat pain for the past 2 to 3 weeks. Patient states she was seen last week at [facility] who completed a x-rays, strep test was done which were all negative. Patient was given medication. Patient states she is taking the medication completed the dose and still experiencing pain in her mouth and some white plaques on her tongue. She denies fever/chills/nausea vomiting. Patient states that it dumont when she drinks or eats. Patient states her tongue feels like it has little ulcers on it. - ROS Review of Systems: As as noted in HPI - Exam Vital Signs: Vital Signs 11/05/19 06:36 Temperature 98.8 F Pulse Rate 89 Respiratory 16 Rate Blood Pressure 157/106 O2 Sat by Pulse 97 Oximetry Physical Exam: GENERAL: Alert and oriented x3, no apparent distress, Normal Gait, atraumatic. HEAD: Head is normocephalic and a-traumatic. MOUTH:Mouth is well hydrated and without lesions. Tonsils nonerythematous or swollen, Uvula midline, Tongue not elevated. Tongue has some white plaquish lesions unknown. Tongue also has some mild ulcers. mucous membranes are moist. Posterior pharynx clear, no exudate or lesions. Patent airways. NECK: Supple. Non edematous, No lymphadenopathy or thyromegaly. No C-spine tenderness SKIN: Warm and dry, No lesions, No ulceration or induration present. MSE screening note: Focused history and physical exam performed. Due to findings the following was ordered: ED Medical Decision Making - Medical Decision Making 49-year-old female presents with oral candidiasis Reviewed discharge paperwork from [facility]. Thorough work-up was completed and done. We will go ahead and treat patient for oral thrush and oral ulcers. Vital signs are normal she is in no acute distress. Next ED Disposition for MSE Clinical Impression: Oral thrush, Mouth ulcers Disposition: DC- TO HOME OR SELFCARE Is pt being admited?: No Does the pt Need Aspirin: No Condition: Stable Instructions: Trench Mouth (ED), Oral Mucositis (ED), Oral Candidiasis (ED) Additional Instructions: Make sure to follow up with the primary care physician as discussed. Take all your medications as you've been prescribed. If you have any worsening symptoms or develop new symptoms please return to ED immediately. Prescriptions: Nystas/Diphen/Xyl Visc/Mylanta [Magic Mouthwash] 30 ml PO TID PRN #120 ml PRN Reason: Throat Pain Chlorhexidine Mouthwash [Peridex] 15 ml MM BID #1 bottle Acetamin/Codeine 120-12Mg/5 ml [Tylenol/Codeine] 5 ml PO TID PRN #60 ml PRN Reason: Pain Referrals: PRIMARY CARE,MD [Primary Care Provider] - 3-5 Days [facility] [Outside] - 3-5 Days [facility] [Outside] - 3-5 Days Forms: Accompanied Note, Work/School Release Form(ED) Time of Disposition: 09:27
== END 2019-11-05 09:52 | disposition home or self-care (01) ==
LOC: ED 06:24
DX: B37.0 Candidal stomatitis (principal); K13.79 Other lesions of oral mucosa
CPT/HCPCS: 99281